=== PATIENT | male | born 1980 | race Caucasian/White ===

== ENCOUNTER 2018-07-19 12:35 | Emergency (ER) | payer SELFPAY ==
--- NOTE | 2018-07-19 13:33 | EDPHYS ---
Physician Documentation [facility] Name: Wilner Gregg Age: 38 yrs Sex: Male : 1980 Arrival Date: 07/19/2018 Time: 12:40 Bed 13 Private MD: ED Physician Myke Capellan HPI: 07/19 14:00 This 38 yrs old Male presents to ER via Ambulatory with complaints of Facial pm1 Swelling. 14:00 The patient presents with pain. The problem is located in the lower left second molar. pm1 Onset: The symptoms/episode began/occurred yesterday. Duration: The symptoms are continuous, but are steadily getting better. Modifying factors: The symptoms are alleviated by nothing, the symptoms are aggravated by nothing. Associated signs and symptoms: Pertinent negatives: dysphagia, fever, inability to eat, nausea, vomiting. The patient has not experienced similar symptoms in the past. The patient has not recently seen a physician. 14:00 Dental pain to left lower jaw onset yesterday with swelling to left side of face. pm1 Swelling has improved since yesterday. Historical: - Allergies: 13:06 No Known Allergies; hb - Immunization history:: Adult Immunizations up to date. - Social history:: Smoking status: Patient uses tobacco products, smokes one-half pack cigarettes per day. - Ebola Screening: : No symptoms or risks identified at this time. ROS: 14:00 Constitutional: Negative for fever, chills, and weight loss, Eyes: Negative for injury, pm1 pain, redness, and discharge. 14:00 Neck: Negative for injury, pain, and swelling, Cardiovascular: Negative for chest pain, palpitations, and edema, Respiratory: Negative for shortness of breath, cough, wheezing, and pleuritic chest pain, Abdomen/GI: Negative for abdominal pain, nausea, vomiting, diarrhea, and constipation, Back: Negative for injury and pain, : Negative for injury, bleeding, discharge, and swelling, MS/Extremity: Negative for injury and deformity, Skin: Negative for injury, rash, and discoloration, Neuro: Negative for headache, weakness, numbness, tingling, and seizure. 14:00 ENT: Positive for dental pain, Negative for drainage from ear(s), ear pain, sore throat, difficulty swallowing, difficulty handling secretions, hoarseness. Exam: 14:00 Constitutional: This is a well developed, well nourished patient who is awake, alert, pm1 and in no acute distress. Head/Face: Normocephalic, atraumatic. Eyes: Pupils equal round and reactive to light, extra-ocular motions intact. Lids and lashes normal. Conjunctiva and sclera are non-icteric and not injected. Cornea within normal limits. Periorbital areas with no swelling, redness, or edema. 14:00 Neck: Trachea midline, no thyromegaly or masses palpated, and no cervical lymphadenopathy. Supple, full range of motion without nuchal rigidity, or vertebral point tenderness. No Meningismus. Chest/axilla: Normal chest wall appearance and motion. Nontender with no deformity. No lesions are appreciated. Cardiovascular: Regular rate and rhythm with a normal S1 and S2. No gallops, murmurs, or rubs. Normal PMI, no JVD. No pulse deficits. Respiratory: Lungs have equal breath sounds bilaterally, clear to auscultation and percussion. No rales, rhonchi or wheezes noted. No increased work of breathing, no retractions or nasal flaring. Abdomen/GI: Soft, non-tender, with normal bowel sounds. No distension or tympany. No guarding or rebound. No evidence of tenderness throughout. Back: No spinal tenderness. No costovertebral tenderness. Full range of motion. Skin: Warm, dry with normal turgor. Normal color with no rashes, no lesions, and no evidence of cellulitis. MS/ Extremity: Pulses equal, no cyanosis. Neurovascular intact. Full, normal range of motion. 14:00 ENT: External ear(s): are unremarkable, Ear canal(s): are normal, TM's: are normal, Nose: is normal, no drainage, no edema, Mouth: is normal, no abscess, no drooling, no injury, (-) tongue elevation (-) trismus Posterior pharynx: is normal, airway is patent, no erythema, no exudate, no peritonsilar mass, no pooling of secretions, no swelling, Dental exam: dental caries, that is moderate, diffusely. 14:00 Neuro: Orientation: is normal, Motor: is normal, moves all fours. Vital Signs: 13:06 BP 152 / 96; Pulse 104; Resp 16; Temp 99; Pulse Ox 100% on R/A; Pain 9/10; hb 14:18 BP 108 / 90; Pulse 93; Resp 17; Pulse Ox 100% on R/A; mh5 MDM: 13:13 Patient medically screened. pm1 13:32 Data reviewed: vital signs. Data interpreted: Pulse oximetry: on room air is 100 %. pm1 Interpretation: normal. Counseling: I had a detailed discussion with the patient and/or guardian regarding: the historical points, exam findings, and any diagnostic results supporting the discharge/admit diagnosis, the need for outpatient follow up, for definitive care, a dentist, to return to the emergency department if symptoms worsen or persist or if there are any questions or concerns that arise at home. Administered Medications: 13:45 Drug: Clindamycin 600 mg Route: IM; Site: right gluteus; bp 14:27 Follow up: Response: No adverse reaction bp 13:45 Drug: [place] 10 mg-325 mg 1 tabs Route: PO; bp 14:27 Follow up: Response: Pain is decreased bp Disposition: 07/19/18 13:33 Discharged to Home. Impression: Periapical abscess without sinus. - Condition is Stable. - Discharge Instructions: Dental Abscess, Dental Pain. - Prescriptions for Clindamycin HCl 300 mg Oral Capsule - take 1 capsule by ORAL route every 6 hours for 10 days; 40 capsule. Tylenol- Codeine #3 300-30 mg Oral Tablet - take 2 tablets by ORAL route every 6 hours As needed; 20 tablet. - Medication Reconciliation Form, Thank You Letter, Antibiotic Education, Prescription Opioid Use form. - Follow up: Emergency Department; When: As needed; Reason: Worsening of condition. Follow up: Private Physician; When: 2 - 3 days; Reason: Recheck today's complaints, Continuance of care, Re-evaluation by your physician. - Problem is new. - Symptoms have improved. Addendum: 07/31/2018 15:10 Co-signature as Attending Physician, Myke Capellan MD Available for consultation at p s1 all times. . Signatures: Geraldo Gilliam, WASH OIL PUMP OPERATOR WASH OIL PUMP OPERATOR pm1 Ashley Velasco, RN RN hb Adarsh Pinzon RN RN Myke Loredo MD MD ps1 Corrections: (The following items were deleted from the chart) 07/19 14:27 13:33 07/19/2018 13:33 Discharged to Home. Impression: Periapical abscess without bp sinus. Condition is Stable. Forms are Medication Reconciliation Form, Thank You Letter, Antibiotic Education, Prescription Opioid Use. Follow up: Emergency Department; When: As needed; Reason: Worsening of condition. Follow up: Private Physician; When: 2 - 3 days; Reason: Recheck today's complaints, Continuance of care, Re-evaluation by your physician. Problem is new. Symptoms have improved. pm1
--- NOTE | 2018-07-19 13:33 | ER ---
Nurse's Notes [facility] Name: Wilner Gregg Age: 38 yrs Sex: Male : 1980 Arrival Date: 07/19/2018 Time: 12:40 Bed 13 Private MD: Diagnosis: Periapical abscess without sinus Presentation: 07/19 13:05 Presenting complaint: Left sided facial swelling x 2 days. Transition of care: patient hb was not received from another setting of care. Onset of symptoms was July 18, 2018. Risk Assessment: Do you want to hurt yourself or someone else? Patient reports no desire to harm self or others. Care prior to arrival: None. 13:05 Method Of Arrival: Ambulatory hb 13:05 Acuity: MITA 3 hb 14:26 Initial Sepsis Screen: Does the patient meet any 2 criteria? No. Patient's initial bp sepsis screen is negative. Does the patient have a suspected source of infection? No. Patient's initial sepsis screen is negative. Triage Assessment: 13:16 General: Appears in no apparent distress. uncomfortable, Behavior is calm, cooperative, bp appropriate for age. Pain: Complains of pain in LEFT FACE. Historical: - Allergies: 13:06 No Known Allergies; hb - Immunization history:: Adult Immunizations up to date. - Social history:: Smoking status: Patient uses tobacco products, smokes one-half pack cigarettes per day. - Ebola Screening: : No symptoms or risks identified at this time. Screenin:19 Abuse screen: Denies threats or abuse. Denies injuries from another. Nutritional bp screening: No deficits noted. Tuberculosis screening: No symptoms or risk factors identified. Fall Risk None identified. Assessment: 13:17 General: Appears in no apparent distress. uncomfortable, Behavior is calm, cooperative, bp appropriate for age. Pain: Complains of pain in LEFT FACE. Neuro: Level of Consciousness is awake, alert, obeys commands, Oriented to person, place, time, situation, Appropriate for age. Cardiovascular: No deficits noted. Respiratory: Airway is patent Respiratory effort is even, unlabored, Respiratory pattern is regular, symmetrical. GI: No signs and/or symptoms were reported involving the gastrointestinal system. : No signs and/or symptoms were reported regarding the genitourinary system. EENT: LEFT FACE SWELLING. Derm: No deficits noted. Musculoskeletal: Circulation, motion, and sensation intact. Range of motion: intact in all extremities. 14:25 Reassessment: PT D/C HOME AMBULATORY WITH FAMILY, DX WITH DENTAL ABSCESS. bp Vital Signs: 13:06 BP 152 / 96; Pulse 104; Resp 16; Temp 99; Pulse Ox 100% on R/A; Pain 9/10; hb 14:18 BP 108 / 90; Pulse 93; Resp 17; Pulse Ox 100% on R/A; mh5 ED Course: 12:40 Patient arrived in ED. rg4 13:06 Triage completed. hb 13:06 Arm band placed on. hb 13:11 Geraldo Gilliam NP is PHCP. pm1 13:11 Myke Capellan MD is Attending Physician. pm1 13:16 Adarsh Pinzon, RN is Primary Nurse. bp 13:19 Patient has correct armband on for positive identification. Bed in low position. Call bp light in reach. Side rails up X2. Adult w/ patient. 14:25 No provider procedures requiring assistance completed. Patient did not have IV access bp during this emergency room visit. Administered Medications: 13:45 Drug: Clindamycin 600 mg Route: IM; Site: right gluteus; bp 14:27 Follow up: Response: No adverse reaction bp 13:45 Drug: [place] 10 mg-325 mg 1 tabs Route: PO; bp 14:27 Follow up: Response: Pain is decreased bp Outcome: 13:33 Discharge ordered by MD. pm1 14:26 Discharged to home ambulatory, with family. bp 14:26 Condition: stable 14:26 Discharge instructions given to patient, Instructed on discharge instructions, follow up and referral plans. medication usage, Demonstrated understanding of instructions, follow-up care, medications, Prescriptions given X 2. 14:27 Patient left the ED. bp Signatures: Geraldo Gilliam NP HANDLE MAKER pm1 Ashley Velasco, СЕРГЕЙ RN Cammy Carroll [facility] Adarsh Pinzon, СЕРГЕЙ RN bp
[2018-07-19] MEDS ORDERED: HYDROCODONE/APAP 10/325 TAB ONE (14:02)
[2018-07-19] MEDS ORDERED: CLINDAMYCIN 900MG/D5W 900 MG/50 ML IVPB IV ONE (14:02)
[2018-07-19] MEDS ORDERED: CLINDAMYCIN IV 150 MG/ML (4 mL) VIAL ONE (14:05)
== END 2018-07-19 14:27 | disposition home or self-care (01) ==
LOC: ER 12:35
DX: K04.7 Periapical abscess without sinus (principal); F17.210 Nicotine dependence, cigarettes, uncomplicated
CPT/HCPCS: 96372; 99283; S0077

== ENCOUNTER → 2023-10-17 | Emergency (ER) | payer OTHER ==
[~2023-10-17] MED LIST: CYCLOBENZAPRINE 10 MG TAB ONE; DIAZEPAM 5 MG TABLET ONE; THIAMINE HCL 100 MG TABLET ONE
--- OUTSIDE RECORDS SUMMARY | 2023-10-17 19:38 | XMS REPORT | Continuity of Care Document ---
Author Name Unknown Address [address] [facility] [place] [address] [facility] Address [address] [facility] [place] [address] Care Team Providers Care Motor Grader Rough Grade Name Role Phone Pcp, Patient Does Not Have A Primary Care Physic parris DANIELLE MORSE Attending Clinician Unavailable Garry Riggs MD Attending Clinician [phone] Danielle Morse MD Attending Clinician [phone] LYNNETTE AVILA Attending Clinician Unavailable LYNNETTE AVILA Attending Clinician Unavailable Celestino Horn MD Attending Clinician [phone] Lynnette Avila DO Attending Clinician [phone] CHANDLER GOINS Attending Clinician Unavailable Chandler Goins MD Attending Clinician [phone] Rm, Vls Procedure Attending Clinician Unavailabl e Nurse, Vls Plastic Surg Attending Clinician Unav ailable Therapy-Florence HaganNrb-Zv-Ivybw Attending Clinician Unavailable Adarsh Shafer MD Attending Clinician [phone] Doctor Unassigned, [place] Attending Clinician U Myke Drew DO Attending Clinician [phone] Lab, Adc Fam Pob I Attending Clinician Unavailab Arleen Garza Attending Clinician [phone] ARLEEN MITCHELL Attending Clinician Unavailable CELESTINO HORN Admitting Clinician Unavailable Chandler Goins MD Admitting Clinician [phone] Payers Payer Name Policy Type Policy Number Effective Date Expirati on Date Source [facility] [id number] 2023 00:00:00 Problems Condition Name Condition Details Condition Category Status Onset Date Resolution Date Last Treatment Date Treating Clinician Comments Source Finger pain, right Finger pain, right Disease Active - 00:00: 00 [facility] Finger stiffness, right Finger stiffness, right Disease Active 03-14 00:00: 00 [facility] Effusion of finger joint Effusion of finger joint Disease Active 03-14 00:00: 00 [facility] Allergies, Adverse Reactions, Alerts Allergy Name Allergy Type Status Severity Reaction(s) Onset Date Inactive Date Treating Clinician Comments Source NO KNOWN ALLERGIE S Drug Class Active [facility] Social History Social Habit Start Date Stop Date Quantity Comments Source History of tobacco use Occasional tobacco smoker [facility] Gender identity [facility] Exposure to SARS-CoV-2 (event) Not sure [facility] History of Social function 2021-06-28 00:00:00 2021-06-28 00:00:00 [facility] Tobacco use and exposure 2021-05-29 00:00:00 2021-05-29 00:00:00 Smokeless tobacco non-user [facility] Sex Assigned At 1980 00:00:00 1980 00:00:00 [facility] Smoking Status Start Date Stop Date Source Occasional tobacco smoker 2021-05-29 00:00:00 [facility] Medications Ordered Medication Name Filled Medication Name Start Date Stop Date Current Medication? Ordering Clinician Indication Dosage Frequency Signature (SIG) Comments Components Source NaCl 0.9% (NS) bolus infusion 1,000 mL 10-14 04:15: 00 10-14 04:45 :00 No 1000mL at 999 mL/hr, 1,000 mL, IV Infusion, ONCE, 1 dose, On Sat10/14/23 at 2315, DIANA [facility] bacitracin 500 unit/gram ointment - 00:00: 00 Yes [id number] Apply to area(s) 4 (four) times daily. [facility] bacitracin 500 unit/gram ointment 0 8-06 00:00: 00 Yes [id number] Apply to area(s) 4 (four) times daily. [facility] bacitracin 500 unit/gram ointment 0 8-06 00:00: 00 Yes [id number] Apply to area(s) 4 (four) times daily. [facility]gram oint[facility] 0 8-06 00:00: 00 Yes [id number] Apply to area(s) 4 (four) times daily. [facility] Vital Signs Vital Name Observation Time Observation Value Comments S ource Systolic blood pressure 2023-10-15 03:29:00 142 mm[Hg] [facility] Diastolic blood pressure 2023-10-15 03:29:00 108 mm[Hg] [facility] Heart rate 2023-10-15 03:29:00 83 /min [facility] Body temperature 2023-10-15 03:29:00 36.67 Sonali [facility] Respiratory rate 2023-10-15 03:29:00 17 /min [facility] Body height 2023-10-15 03:29:00 170.2 cm [facility] Body weight 2023-10-15 03:29:00 70.308 kg [facility] BMI 2023-10-15 03:29:00 24.28 kg/m2 [facility] Oxygen saturation in Arterial blood by Pulse oximetry 2023-10-15 03:29:00 96 /min [facility] Systolic blood pressure 2023-03-29 11:55:00 118 mm[Hg] [facility] Diastolic blood pressure 2023-03-29 11:55:00 94 mm[Hg] [facility] Heart rate 2023-03-29 11:55:00 68 /min [facility] Respiratory rate 2023-03-29 11:55:00 20 /min [facility] Oxygen saturation in Arterial blood by Pulse oximetry 2023-03-29 11:55:00 96 /min [facility] Body temperature 2023-03-29 10:25:00 36.72 Sonali [facility] Body height 2023-03-29 10:25:00 170.2 cm [facility] Body weight 2023-03-29 10:25:00 68.221 kg [facility] BMI 2023-03-29 10:25:00 23.56 kg/m2 [facility] Systolic blood pressure 2021-07-12 17:04:00 121 mm[Hg] [facility] Diastolic blood pressure 2021-07-12 17:04:00 81 mm[Hg] [facility] Heart rate 2021-07-12 17:04:00 74 /min [facility] Body temperature 2021-07-12 17:04:00 36.28 Sonali [facility] Respiratory rate 2021-07-12 17:04:00 18 /min [facility] Body height 2021-07-12 17:04:00 170.2 cm [facility] Body weight 2021-07-12 17:04:00 72.53 kg [facility] BMI 2021-07-12 17:04:00 25.04 kg/m2 [facility] Oxygen saturation in Arterial blood by Pulse oximetry 2021-07-12 17:04:00 99 /min [facility] Systolic blood pressure 2021-06-28 17:15:00 128 mm[Hg] [facility] Diastolic blood pressure 2021-06-28 17:15:00 82 mm[Hg] [facility] Heart rate 2021-06-28 17:15:00 85 /min [facility] Body temperature 2021-06-28 17:15:00 36.83 Sonali [facility] Body height 2021-06-28 17:15:00 170.2 cm [facility] Body weight 2021-06-28 17:15:00 73.074 kg [facility] BMI 2021-06-28 17:15:00 25.23 kg/m2 [facility] Oxygen saturation in Arterial blood by Pulse oximetry 2021-06-28 17:15:00 99 /min [facility] Procedures Procedure Date / Time Performed Performing Clinicia n Source COMP. METABOLIC PANEL (52711) 2023-10-15 03:45:00 Garry Riggs [facility] ETHANOL 2023-10-15 03:45:00 Danielle Morse [facility] CBC WITH DIFF 2023-10-15 03:45:00 Garry Riggs [facility] TROPONIN I 2023-03-29 10:58:00 Celestino Horn [facility] COMP. METABOLIC PANEL (50627) 2023-03-29 10:58:00 Celestino Horn [facility] CBC WITH DIFF 2023-03-29 10:58:00 Celestino Horn [facility] NOTICE OF PRIVACY PRACTICES 2023-03-29 10:14:51 Doctor Unassigned, [place] [facility] CONSENT/REFUSAL FOR DIAGNOSIS AND TREATMENT 2023-03-29 10:14:23 Doctor Unassigned, [place] [facility] Encounters Start Date/Time End Date/Time Encounter Type Admission Type Attending Clinicians Care Facility Care Department Encounter ID Source 2021-05-29 13:43:11 Emergency X [facility] SPL [id number] [facility] 2021-05-29 13:41:28 Emergency [facility] [id number] [facility] 2023-10-14 22:24:00 2023-10-15 00:02:00 Emergency X DANIELLE MORSE [facility] ERT [id number] [facility] 2023-10-14 22:24:00 2023-10-15 00:02:00 Emergency Garry Riggs Donnell [facility] 1.2.840.114 350.1.13.10 4.2.7.2.686 [id number] [facility] 2023-03-29 05:26:00 2023-03-29 07:25:00 Emergency X LYNNETTE AVILA HEE-ROSA [facility] ERT [id number] [facility] 2023-03-29 05:26:00 2023-03-29 07:25:00 Emergency Celestino Horn Lynnette [facility] 1..840.114 350.1.13.10 4.2.7.2.686 [id number] [facility] 2021-07-12 11:00:00 2021-07-12 12:10:04 Outpatient R CHANDLER GOINS [facility] [id number] [facility] 2021-07-12 11:00:00 2021-07-12 12:10:04 Nurse Visit Chandler Goins [facility] .840.114 350.1.13.10 4.2.7.2.686 [id number] [facility] 2021-07-12 11:00:00 2021-07-12 11:00:00 Outpatient R [facility] [id number] [facility] 2021-06-28 11:09:33 2021-06-28 11:53:24 Office Visit Chandler Goins Vls Procedure [facility] [place] [facility] ..840.114 350.1.13.10 4.2.7.2.686 [id number] 201 [id number] [facility] 2021-06-28 11:00:00 2021-06-28 11:53:24 Outpatient R CHANDLER GOINS [facility] [id number] [facility] 2021-06-15 15:30:30 2021-06-15 16:01:48 Nurse Visit Nurse, Vls Plastic Surg Chandler Goins [facility] [place] [facility] ..840.114 350.1.13.10 4.2.7.2.686 [id number] [facility] 2021-06-15 15:30:00 2021-06-15 16:01:48 Outpatient CHANDLER GAONA [facility] [id number] [facility] 2021-06-15 15:30:00 2021-06-15 15:30:00 Outpatient CHANDLER GAONA [facility] [id number] [facility] 2021-06-15 00:00:00 2021-06-15 00:00:00 Telephone Chandler Goins [facility] 1.2.840.114 350.1.13.10 4.2.7.2.686 [id number] [facility] 2021-06-12 00:00:00 2021-06-12 00:00:00 [facility]phone [facility] [place] [facility] 1.2.840.114 350.1.13.10 4.2.7.2.686 [id number] 201 [id number] [facility] 2021-05-29 14:14:11 2021-05-29 23:59:00 Hospital Encounter Chandler Goins [facility] [place] [facility] 1.2.840.114 350.1.13.10 4.2.7.2.686 [id number] [facility] 2021-05-29 14:40:06 2021-05-29 15:36:21 Office Visit Chandler Goins [facility] [place] [facility] 1.2.840.114 350.1.13.10 4.2.7.2.686 [id number] [facility] 2021-05-29 14:00:00 2021-05-29 15:36:21 Outpatient CHANDLER GAONA [facility] [id number] [facility] 2021-05-29 14:00:00 2021-05-29 15:36:21 Outpatient CHANDLER GAONA [facility] [id number] [facility] 2021-05-28 00:00:00 2021-05-28 00:00:00 Abstract Chandler Goins [facility] 1.84.114 350.1.13.10 4.2.7.2.686 [id number] [facility] 2021-05-26 06:51:00 2021-05-26 07:36:00 Emergency X SOPIHA DANIELLE [facility] ERT [id number] [facility] 2021-05-26 06:51:00 2021-05-26 07:36:00 Emergency Danielle Morse [facility] 1.84.114 350.1.13.10 4.2.7.2.686 [id number] [facility] 2021-05-26 06:51:00 2021-05-26 07:36:00 Emergency X SOPHIA DANIELLE [facility] ERT [id number] [facility] 2021-05-26 00:00:00 2021-05-26 00:00:00 [facility] 1.84.114 350.1.13.10 4.2.7.2.686 [id number] [facility] 2021-03-27 14:00:00 2021-03-27 14:00:00 Outpatient R CHANDLER GOINS [facility] [id number] [facility] 2021-03-13 14:45:55 2021-03-13 15:28:49 Ancillary Visit Therapy-Kelly Ortiz Brian A [facility] ([facility]) 1..114 350.1.13.10 4.2.7.2.686 [id number] [facility] 2021-03-13 13:32:57 2021-03-13 14:22:04 Office Visit Chandler Goins [facility] 1.84.114 350.1.13.10 4.2.7.2.686 [id number] [facility] 2021-03-13 13:30:00 2021-03-13 14:22:04 Outpatient CHANDLER GAONA [facility] [id number] [facility] 2021-03-13 13:45:00 2021-03-13 13:45:00 Outpatient R [facility] [id number] [facility] 2021-03-13 13:30:00 2021-03-13 13:30:00 Outpatient CHANDLER GAONA [facility] [id number] [facility] 2021-03-13 00:00:00 2021-03-13 00:00:00 Orders Only Doctor Unassigned, [place] [facility] 1.2.840.114 350.1.13.10 4.2.7.2.686 [id number] [facility] 2021-03-03 15:39:00 2021-03-03 19:58:00 Emergency Chandler Goins [facility] 1.2.840.114 350.1.13.10 4.2.7.2.686 [id number] [facility] 2021-03-03 13:04:00 2021-03-03 14:25:00 Emergency Myke Capellan [facility] 1.2.840.114 350.1.13.10 4.2.7.2.686 [id number] [facility] 2021-03-03 00:00:00 2021-03-03 00:00:00 Orders Only Doctor Unassigned, [place] [facility] 1.2.840.114 350.1.13.10 4.2.7.2.686 [id number] [facility] 2020-03-08 08:32:57 2020-03-08 08:52:57 Laboratory Only Lab, Adc Fam Bonib Arleen Oseguera [facility] 1.840.114 350.1.13.10 4.2.7.2.686 [id number] [facility] 2020-03-08 08:40:00 2020-03-08 08:40:00 Outpatient R ARLEEN MITCHELL [facility] [id number] [facility] 2020-03-08 00:00:00 2020-03-08 00:00:00 Letter (Out) Doctor Unassigned, [place] [facility] 1.840.114 350.1.13.10 4.2.7.2.686 [id number] [facility] Results Test Description Test Time Test Comments Results Resul t Comments Source Ethanol 2023-10-15 04:20:21 ALCOHOL>300mg/dL 10/14/2023 11:20 [facility] Psnzdzmc92-018 Toxic>[address] TECHNOLOGIST>400 [facility] 04:04:14* Test Item Value Reference Range Interpretation Comme nts WBC (test code = 6690-2) 6.05 4.20-10.70 RBC (test code = 789-8) 4.88 4.26-5.52 HGB (test code = 718-7) 15.8 g/dL 12.2-16.4 HCT (test code = 4544-3) 44.9 % 38.4-49.3 MCV (test code = 787-2) 92.0 fL 81.7-95.6 MCH (test code = 785-6) 32.4 pg 26.1-32.7 MCHC (test code = 786-4) 35.2 g/dL 31.2-35.0 H RDW-SD (test code = 72049-6) 48.3 fL 38.5-51.6 RDW-CV (test code = 788-0) 14.3 % 12.1-15.4 PLT (test code = 777-3) 197 150-328 MPV (test code = 94546-7) 10.0 fL 9.8-13.0 NRBC/100 WBC (test code = 2537496602) 0.0 0.0-10.0 NRBC x10^3 (test code = 8932667024) See_Comment [Automated messa ge] The system which generated this result transmitted reference range: 10*3/?L. The reference range was not used to interpret this result as normal/abnormal. GRAN MAT (NEUT) % (test code = 770-8) 34.1 % IMM GRAN % (test code = 0325065194) 0.20 % LYMPH % (test code = 736-9) 53.6 % MONO % (test code = 5905-5) 6.1 % EOS % (test code = 713-8) 4.8 % BASO % (test code = 706-2) 1.2 % GRAN MAT x10^3(ANC) (test code = 3186973059) 2.07 10*3/uL 1.99-6.95 IMM GRAN x10^3 (test code = 1513820506) 0.00-0.06 LYMPH x10^3 (test code = 731-0) 3.24 10*3/uL 1.09-3.23 H MONO x10^3 (test code = 742-7) 0.37 10*3/uL 0.36-1.02 EOS x10^3 (test code = 711-2) 0.29 10*3/uL 0.06-0.53 BASO x10^3 (test code = 704-7) 0.07 10*3/uL 0.01-0.09 Lab Interpretation (test code = 12206-2) Abnormal [facility] WITH [id number] 11:51:35* Test Item Value Reference Range Interpretation Comme nts WBC (test code = 6690-2) 5.28 See_Comment [Automated messa ge] The system which generated this result transmitted reference range: 4.20 - 10.70 10*3/?L. The reference range was not used to interpret this result as normal/abnormal. RBC (test code = 789-8) 5.07 See_Comment [Automated messa ge] The system which generated this result transmitted reference range: 4.26 - 5.52 10*6/?L. The reference range was not used to interpret this result as normal/abnormal. HGB (test code = 718-7) 16.7 g/dL 12.2-16.4 H HCT (test code = 4544-3) 45.9 % 38.4-49.3 MCV (test code = 787-2) 90.5 fL 81.7-95.6 MCH (test code = 785-6) 32.9 pg 26.1-32.7 H MCHC (test code = 786-4) 36.4 g/dL 31.2-35.0 H RDW-SD (test code = 02336-5) 43.8 fL 38.5-51.6 RDW-CV (test code = 788-0) 13.2 % 12.1-15.4 PLT (test code = 777-3) 176 See_Comment [Automated messa ge] The system which generated this result transmitted reference range: 150 - 328 10*3/?L. The reference range was not used to interpret this result as normal/abnormal. MPV (test code = 02395-2) 10.1 fL 9.8-13.0 NRBC/100 WBC (test code = 3467246162) 0.0 See_Comment [Automated me ssage] The system which generated this result transmitted reference range: 0.0 - 10.0 /100 WBCs. The reference range was not used to interpret this result as normal/abnormal. NRBC x10^3 (test code = 0927723202) See_Comment [Automated messa ge] The system which generated this result transmitted reference range: 10*3/?L. The reference range was not used to interpret this result as normal/abnormal. SEG % (test code = 14213-9) 12 % 33-76 L LYMPH % (test code = 35005-6) 68 % 14-54 H MONO % (test code = 40412-9) 4 % 0-4 EOS % (test code = 60573-3) 16 % 0-3 H ANC (test code = 753-4) 0.63 10*3/uL 1.99-6.95 L Lab Interpretation (test code = 81478-5) Abnormal [facility] [id number] 11:46:26* Test Item Value Reference Range Interpretation Comme nts TROPONIN I (test code = 2995968640) 0.004 ng/mL <=0.034 HILARIA (test code = HILARIA) Reference (Normal) Range (defined by the 99th percentile reference limit): <= 0.034 ng/mL Note: Cardiac troponin begins to rise 3-4 hours after the onset of ischemia. Repeat in 4-6 hours if the sample was drawn within 3-4 hours of the onset of the symptom and found normal. Diagnosis of myocardial injury is made with acute changes in cTn concentrations with at least one serial sample above the 99th percentile upper reference limit (URL), taken together with the patient's clinical presentation. Biotin has been reported to cause a negative bias, interpret results relative to patient's use of biotin. Lab Interpretation (test code = 10867-6) Normal [facility]. METABOLIC PANEL (45737)2023-03-29 11:35:02* Test Item Value Reference Range Interpretation Comme nts NA (test code = 6961597000) 141 mmol/L 135-145 K (test code = 4198221837) 3.3 mmol/L 3.5-5.0 L CL (test code = 6736679435) 106 mmol/L 98-108 CO2 TOTAL (test code = 7820902497) 25 mmol/L 23-31 AGAP (test code = 0788465257) 10 2-16 BUN (test code = 0889590240) 4 mg/dL 7-23 L GLUCOSE (test code = 5846325115) 91 mg/dL 70-110 CREATININE (test code = 8607695360) 0.78 mg/dL 0.60-1.25 TOTAL BILI (test code = 8087960269) 0.4 mg/dL 0.1-1.1 CALCIUM (test code = 2593508296) 8.9 mg/dL 8.6-10.6 T PROTEIN (test code = 1121521552) 8.3 g/dL 6.3-8.2 H ALBUMIN (test code = 1707796312) 4.6 g/dL 3.5-5.0 ALK PHOS (test code = 2234350586) 75 U/L 34-122 ALTv (test code = 1742-6) 47 U/L 5-50 AST(SGOT) (test code = 9369513026) 45 U/L 13-40 H eGFR (test code = 5225836592) 108.6 mL/min/1.73m2 HILARIA (test code = HILARIA) Association of Glomerular Filtration Rate (GFR) and Staging of Kidney Disease* + --+ --+ ------+| GFR (mL/min/1.73 m2) ?| With Kidney Damage ?| ?Without Kidney Damage+ --------+ --------+ +| ?>90 ?| ?Stage one ?| ? Normal ?+ ---+ ---+ -------+| ?60-89 ?| ?Stage two ?| ? Decreased GFR ? + --+ --+ ------+| ?30-59 ?| ?Stage three ?| ? Stage three ? + --+ --+ ------+| ?15-29 ?| ?Stage four ? | ? Stage four ?+ ---+ ---+ -------+| ?<15 (or dialysis) ? ?| ?Stage five ? | ? Stage five ?+ ---+ ---+ -------+ *Each stage assumes the associated GFR level has been in effect for at least three months. ?Stages 1 to 5, with or without kidney disease, indicate chronic kidney disease. Notes: Determination of stages one and two (with eGFR >59mL/min/1.73 m2) requires estimation of kidney damage for at least three months as defined by structural or functional abnormalities of the kidney, manifested by either:Pathological abnormalities or Markers of kidney damage (including abnormalities in the composition of the blood or urine or abnormalities in imaging tests). Lab Interpretation (test code = 67204-4) Abnormal [facility] Notes Date/Time Note Provider Source 2023-10-15 00:01:59 HWYdbRlHdV+VscRQKJHk vHapoEnfQ6PjWI qMP4UmdKsJOqgrO405gmoobV6WWZYt7238 -03-19T00:01:59 Pt given printed and verbal discharge instructions regarding paresthesia, alcoholic intoxication without complication, encouraged hydration,Pt verbalized understanding of instructions, pt awake alert oriented, resp reg unlabored, skin w/d, color appropriate for race, moves all ext well,pt encouraged to follow up with pcp and or OrthoAdvised to seek medical attention for new/prolonged/worsening of symptomsNo adverse reaction to meds given in ER noted upon dischargePIV d'cd, dressing to site, catheter in tact.Awake, alert oriented, resp reg unlabored, skin w/d, pt leaving amb with steady gait, in no apparent distress, [address]-2T[address] PmtiTE1505-46-42U72:02:39[facility] NoteTXT1.2.840.422190.1.13.104.2.7 .2.305963|[id number] for patient rrek82218-2OdvgXPSBIVIGRYXZhkhfkaa d C-CDA narrative textUT25 Butler StreetVawaQdyyceibvSqvfsbemyOGGF04761530 43XLCOODHFAIIEUTCZSQDREB1061-33-74 T00:02:391.2.840.598123.1.72.3.15| 1.2.840.289667.1.13.104.2.7.2.7278 [id number] [facility] 2023-10-14 22:30:00 wHYjpSNf7k0pAXVdgwhj Et/F8wb7OHaheo MUAHFUR5yCjPuiLcCW7Zoen6g5lSoQ8037 -03-18T22:30:00 When MD left room patient using obscene hand gestures and statements like, "bitch" "fucking asshole" and "fermín." Patient able to make fist with right hand with middle finger elevated. 95918-3Zhuxidjeb department AwfyCM9999-63-70X59:36:09[facility] NoteTXT1.2.840.337074.1.13.104.2.7 .2.563856|[id number] for patient nwnk05835-9NjiyEPRJDYZECMUYgqkxwlz d C-CDA narrative textUT69 Johnson StreetTXTX77555775 86CMYSBAYFJAZDXLVLHMGWAJ2918-17-40 T22:36:091.2.840.184246.1.72.3.15| 1.2.840.675002.1.13.104.2.7.2.7278 [id number] [facility] 2023-10-14 22:28:31 1ubdITK30qXqbqngc3R2 AmOmeMNiCckWUd 4MsOQ9ohLPZpZc8ZylMbvkHhzd4OkO1792 -03-18T22:28:31 Patient arrived to ED via [facility] c/o right hand being "numb and tingles" x9 weeks. Patient states his right hand and arm tingle when he sleeps with his hand behind his head. EMS states ETOH on board patient states drinking malt liquor tonight. When asked how much patient states "how ever much the fuck I want." Patient Aox4. 30350-5Xwcvmgukl department Triage wrihBL4169-97-07I48:33:01[facility] department Triage noteTXT1.2.840.099898.1.13.104.2.7 .2.174183|[id number] for patient lesc13145-8Hlbewwppe department NoteLNNARRATIVEFormatted C-CDA narrative [id number]-Jdzoe McInnis RNUT[address] Johnson [id number] 92ACUHFCIOWHPZVBAIFWAOCG6762-73-94 T22:33:011.2.840.214479.1.72.3.15| 1.2.840.508990.1.13.104.2.7.2.7278 [id number] Redd Luque СЕРГЕЙ [facility] 2023-10-14 22:23:00 5Db79RySmGKZ7TrakRKe CPf0iXhTeJSYT0 9PbbBPico/ThSHEedeaHuBFmoK8ksu8587 -03-18T22:23:00 The patient was endorsed to me by Dr. Riggs. The patient states that he has had arm pain for the past nine weeks and believes that he has difficulty moving his arm. However, he has been very vulgar demonstrative with his hands since he has been here in the ED. He has alcohol level greater than 300. Hematological chemistry studies within acceptable limits. He does not have an acute ischemic event at this time. The patient will be discharged to follow-up with Ortho. He can return for any questions or concerns.Danielle Morse MD10/14/23 2355 70071-4Jaxgaihyo Emergency department UhkyBG8698-28-43M11:55:20Physician Emergency department NoteTXT1.2.840.748948.1.13.104.2.7 .2.185126|[id number] for patient ouil30100-6Egihlyacw department NoteLNNARRATIVEFormatted C-CDA narrative text[address] Qx[id number] 25YGOKGKZQHQZOYCQJMGFNFL7112-60-68 T23:55:201.2.840.971744.1.72.3.15| 1.2.840.827252.1.13.104.2.7.2.7278 [id number] [facility] 2023-03-29 07:18:55 GAtGiVnDMXFfPhaW6j2i PhQjwbD4acx2nf 8T/YNq3ZpsssD1vsxyr12pDb5OqGAz7988 -09-01T07:18:55 Pt given printed and verbal discharge instructions regarding Chest pain,Getting support for quitting smoking, health effects of smoking, encouraged hydration,NO Prescriptions providedDiscussed ibuprofen and to take with food to avoid GI distress.Pt verbalized understanding of instructions, pt awake alert oriented, resp reg unlabored, skin w/d, color appropriate for race, moves all ext well,pt encouraged to follow up with pcp Advised to seek medical attention for new/prolonged/worsening of symptoms,No adverse reaction to meds given in ER noted upon dischargePIV d'cd, dressing to site, catheter in tact.Awake, alert oriented, resp reg unlabored, skin w/d, pt leaving amb with steady gait, in no apparent distress, 43434-5Qwvzgyaat department JwiaVZ1281-68-09A81:20:31[facility] NoteTXT1.2.840.737381.1.13.104.2.7 .2.811251|[id number] for patient [id number] M Hayes RNUT[address] StreetBg[id number] 52MRQFEEZNOGZZHYTUNIQSZC1742-94-60 T07:20:311.2.840.717348.1.72.3.15| 1.2.840.826450.1.13.104.2.7.2.7278 [id number] Rita Mcneil RN [facility] 2023-03-29 05:19:56 +y241wHbaNYgDDvDDn5J y+L3S2YaEOgre1 gUSqyBKE00D76FfRwibxKG4306xbrP3408 -09-01T05:19:56 Pt arrived with c/o of chest pain, pain on L side, and between shoulder blades. Pain began 3 weeks ago, and felt worst today. Pt reports smoking a pack a day. Pt states he believe it may be lung cancer. Pt reports drinking over a pint of alcohol. Pt states the the pain does not subside with the alcohol. 22531-5Edytokqbr department Triage lylwLL1694-33-89J27:23:59[facility] department Triage noteTXT1.2.840.667284.1.13.104.2.7 .2.657224|[id number] for patient kizy40937-3Jykvzunef department [id number] A Diaz [facility]NM[facility] [address] Hg[id number] 17PTCBQZMXQOJIADLFPYOKYH3126-09-39 T05:23:591.2.840.983555.1.72.3.15| 1.2.840.303995.1.13.104.2.7.2.7278 [id number] Yulissa Steel RN [facility] 2023-03-29 05:14:00 KyQ+W7cWKvI75yBnYXdD Ixwf/n6q80iJkt fQXx5tOKM5neO2tkjXARx/vQUfpyDq7974 -09-01T05:14:00 Patient feeling better. Repeat BP 118/94.CP is reproducible. Recent Results (from the past 24 hour(s)) CBC WITH DIFF Collection Time: 03/29/23 5:58 AM Result Value Ref Range WBC 5.28 4.20 - 10.70 10*3/?L RBC 5.07 4.26 - 5.52 10*6/?L HGB 16.7 (H) 12.2 - 16.4 g/dL HCT 45.9 38.4 - 49.3 % MCV 90.5 81.7 - 95.6 fL MCH 32.9 (H) 26.1 - 32.7 pg MCHC 36.4 (H) 31.2 - 35.0 g/dL RDW-SD 43.8 38.5 - 51.6 fL RDW-CV 13.2 12.1 - 15.4 % PLT 176 150 - 328 10*3/?L MPV 10.1 9.8 - 13.0 fL NRBC/100 WBC 0.0 0.0 - 10.0 /100 WBCs NRBC x10^3 <0.01 10*3/?L SEG % 12 (L) 33 - 76 % LYMPH % 68 (H) 14 - 54 % MONO % 4 0 - 4 % EOS % 16 (H) 0 - 3 % ANC 0.63 (L) 1.99 - 6.95 10*3/uL COMP. METABOLIC PANEL ([id number]) Collection Time: 03/29/23 5:58 AM Result Value Ref Range NA 141 135 - 145 mmol/L K 3.3 (L) 3.5 - 5.0 mmol/L CL 106 98 - 108 mmol/L CO2 TOTAL 25 23 - 31 mmol/L AGAP 10 2 - 16 BUN 4 (L) 7 - 23 mg/dL GLUCOSE 91 70 - 110 mg/dL CREATININE 0.78 0.60 - 1.25 mg/dL TOTAL BILI 0.4 0.1 - 1.1 mg/dL CALCIUM 8.9 8.6 - 10.6 mg/dL T PROTEIN 8.3 (H) 6.3 - 8.2 g/dL ALBUMIN 4.6 3.5 - 5.0 g/dL ALK PHOS 75 34 - 122 U/L ALTv 47 5 - 50 U/L AST(SGOT) 45 (H) 13 - 40 U/L eGFR 108.6 mL/min/1.73m2 TROPONIN I Collection Time: 03/29/23 5:58 AM Result Value Ref Range TROPONIN I 0.004 <=0.034 ng/mL Hospital Encounter on 03/29/23 XR CHEST 1 VW Narrative EXAM: XR CHEST 1 VWHISTORY: 43 years-old Male; Provided indication: Chest Pain . Historyobtained from EPIC: "chest pain, pain on L side, and between shoulderblades. Pain began 3 weeks ago, and felt worst today"TECHNIQUE: Single frontal view of the chest.COMPARISON: NoneFINDINGS:The lungs are overinflated and diaphragms are flattened. No focalconsolidation or pleural abnormality is seen.The cardiomediastinal silhouette is normal in size accounting fortechnique.No acute osseous abnormality is detected. Impression Emphysematous changes without radiographic evidence of acutecardiopulmonary abnormality.Preliminary Report Dictated by Resident: Federico Chaparro EKG NSR 68 bpm, no acute ST-T wave changes.Dx: Chest pain, noncardiac. Lynnette Avila D.O.EM PhysicianRTI Billing ID #[id number] Lynnette Avila, 03/29/23 0657 41628-8Utsxazriy Emergency department CtocBO4031-77-97J34:57:56Physician Emergency department NoteTXT1.2.840.256908.1.13.104.2.7 .2.743412|[id number] for patient xfrq70443-9Bfhzbaybq department NoteLNEMCARE EMERGENCY PHYSICIAN STAFFEMCARE EMERGENCY PHYSICIAN STAFF[address][id number] 86CYVFMOPMSCJSAKNZFZQASM2986-66-72 T06:57:561.2.840.870150.1.72.3.15| 1.2.840.052078.1.13.104.2.7.2.7278 [id number] [facility]
[2023-10-17 21:06] LABS: Absolute Eosinophils 0.1 K/uL (0-0.5); Absolute Lymphocytes (CBC) 1.9 K/uL (0.7-4.9); Absolute Monocytes 0.5 K/uL (0.1-1.3); Basophils % 0.6 % (0-1.3); Eosinophils % 2.3 % (0-4.4); Hemoglobin 15.5 g/dL (13.6-17.9); Lymphocytes % 34.2 % (15.3-44.8); MCH 32.5 pg (27.0-35.0); MCHC 34.5 g/dL (32.0-36.0); MCV 94.2 fL (80-100); MPV 8.6 fL (7.6-11.3); Monocytes % 8.6 % (3.3-12.3); Neutrophils % 54.3 % (41.7-73.7); Nucleated Red Blood Cells % 0.1 % (0-0); Platelets 185 thou/uL (152-406); RBC Red Blood Cell Count 4.78 M/uL (4.33-5.43); Red Cell Distribution Width 14.1 % (12.1-15.2)
[2023-10-17 21:18] LABS: Albumin 3.5 g/dL (3.4-5.0); Albumin/Globulin Ratio 0.7 (1.1-1.8); Anion Gap 11.5 mEq/L (5.0-15.0); Bilirubin Total 0.8 mg/dL (0.2-1.0); Globulin 4.7 g/dL (2.3-3.5); Protein, Total 8.2 g/dL (6.4-8.2)
[2023-10-17 21:19] LABS: Potassium 4.5 mEq/L (3.5-5.1)
--- NOTE | 2023-10-17 21:21 | RAD REPORT ---
EXAM DESCRIPTION: CT - Head C Spine Mpr Wo Con - 10/17/2023 8:55 pm CLINICAL HISTORY: Right arm numbness and weakness COMPARISON: None. TECHNIQUE: Computed axial tomography of the head and cervical spine was obtained. Sagittal and coronal reconstruction was performed. All CT scans are performed using dose optimization technique as appropriate and may include automated exposure control or mA/KV adjustment according to patient size. FINDINGS: An intracranial bleed is not seen. The ventricles are normal in caliber. No significant hypodensity within the brain. An extra-axial fluid collection is not noted. Fluid within the visualized sinuses and mastoids is not seen A cervical fracture is not visualized. No dislocation is noted. Spondylosis C4-5 results in mild narrowing neural foramina Spondylosis C5-6 results in mild narrowing the right neural foramina Spondylosis C6-7 appears result in mild to moderate narrowing of thecal sac and mild to moderate narr owing of the neural foramina IMPRESSION: No acute intracranial abnormality is seen. A cervical fracture is not visualized. Spondylosis C6-7 appears to result in mild to moderate central spinal stenosis Nonemergent MRI recommended for further evaluation
--- NOTE | 2023-10-17 21:34 | ER ---
Nurse's Notes [facility] Name: Wilner Gregg Age: 43 yrs Sex: Male : 1980 Arrival Date: 10/17/2023 Time: 19:35 Bed DX4 Private MD: Diagnosis: Right radial nerve palsy, acute right wrist drop, bilateral alcoholic neuropathy;Alcohol abuse with unspecified alcohol-induced disorder;Alcoholic polyneuropathy Presentation: 10/16 20:05 Chief complaint: Patient states: 2-3 months numbness/weakness in right arm/hand; pt km8 reports unable to extend wrist since 10/12/23. Coronavirus screen: Client denies travel out of the [place] in the last 14 days. Ebola Screen: No symptoms or risks identified at this time. Onset of symptoms was October 12, 2023. 20:05 Method Of Arrival: Ambulatory km8 20:05 Acuity: MITA 3 km8 20:07 Initial Sepsis Screen: Does the patient meet any 2 criteria? No. Patient's initial km8 sepsis screen is negative. Does the patient have a suspected source of infection? No. Patient's initial sepsis screen is negative. Risk Assessment: Do you want to hurt yourself or someone else? Patient reports no desire to harm self or others. Triage Assessment: 20:05 General: Appears in no apparent distress. Behavior is calm, cooperative, appropriate km8 for age. Pain: Denies pain. EENT: No signs and/or symptoms were reported regarding the EENT system. Neuro: Level of Consciousness is awake, alert, obeys commands, Oriented to person, place, time, situation, Reports numbness in right arm since 2-3 months. Cardiovascular: Denies chest pain, shortness of breath, Patient's skin is warm and dry. Respiratory: Airway is patent Respiratory effort is even, unlabored, Respiratory pattern is regular, symmetrical. GI: No signs and/or symptoms were reported involving the gastrointestinal system. : No signs and/or symptoms were reported regarding the genitourinary system. Derm: No signs and/or symptoms reported regarding the dermatologic system. Skin is intact, is healthy with good turgor, Skin is dry, Skin is pink, warm \T\ dry. normal, Skin temperature is warm. Musculoskeletal: Range of motion: limited in right wrist. 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 Flu vaccine is not up to date. - Social history:: Smoking status: Patient reports the use of cigarette tobacco products, smokes one pack cigarettes per day. Patient uses alcohol, on a daily basis. Patient/guardian denies using street drugs. - Family history:: not pertinent. Screenin:27 [facility] ED Fall Risk Assessment (Adult) History of falling in the last 3 months, mb9 including since admission No falls in past 3 months (0 pts) Confusion or Disorientation No (0 pts) Intoxicated or Sedated No (0 pts) Impaired Gait No (0 pts) Mobility Assist Device Used No (0 pt) Altered Elimination No (0 pt) Score/Fall Risk Level 0 - 2 = Low Risk Oriented to surroundings, Maintained a safe environment, Educated pt \T\ family on fall prevention, incl call for assistance when getting out of bed. Abuse screen: Denies threats or abuse. Nutritional screening: No deficits noted. Tuberculosis screening: No symptoms or risk factors identified. Assessment: 21:30 Reassessment: No changes from previously documented assessment. Patient and/or family mb9 updated on plan of care and expected duration. Pain level reassessed. Patient is alert, oriented x 3, equal unlabored respirations, skin warm/dry/pink. Vital Signs: 20:07 BP 132 / 98; Pulse 71; Resp 18; Temp 99.1(O); Pulse Ox 100% on R/A; Weight 70.31 kg [facility] (R); Height 5 ft. 7 in. (R); Pain 0/10; 21:31 BP 129 / 89; Pulse 70; Resp 18; Pulse Ox 100% on R/A; mb9 20:07 Body Mass Index 24.28 (70.31 kg, 170.18 cm) [facility] 20:07 Pain Scale: Adult [facility] Mega Coma Score: 20:15 Eye Response: spontaneous(4). Motor Response: obeys commands(6). Verbal Response: sp4 oriented(5). Total: 15. NIH Stroke Scale Scores: 20:15 NIHSS Score: 0 sp4 ED Course: 19:38 Patient arrived in ED. mr 19:58 Vladimir Daniel MD is Attending Physician. sp4 20:05 Arm band placed on left wrist. km8 20:06 Triage completed. km8 20:[address] via wheelchair. mb9 20:50 CBC with Diff Sent. vc1 20:50 CMP Sent. vc1 20:53 Missed attempt(s): 20 gauge in left antecubital area. Bleeding controlled, band aid mb9 applied, catheter tip intact. 20:57 CT Head C Spine In Process Unspecified. EDMS 21:04 Initial lab(s) drawn, by me, sent to lab. mb9 21:27 Patient has correct armband on for positive identification. Client placed on continuous mb9 cardiac and pulse oximetry monitoring. NIBP monitoring applied. 21:27 No provider procedures requiring assistance completed. Patient did not have IV access mb9 during this emergency room visit. 21:28 Provided Education on: PO medication given. mb9 21:30 Coco Delgadillo RN is Primary Nurse. mb9 21:33 Chadd Harvey MD is Referral Physician. sp4 Administered Medications: 20:53 Drug: Cyclobenzaprine PO 10 mg PO once Route: PO; mb9 21:18 Follow up: Response: No adverse reaction mb9 20:53 Drug: Diazepam PO 5 mg PO once Route: PO; mb9 21:18 Follow up: Response: No adverse reaction mb9 21:27 Drug: Thiamine PO 200 mg PO once Route: PO; mb9 21:30 Follow up: Response: No adverse reaction mb9 Medication: 21:28 VIS not applicable for this client. mb9 Outcome: 21:34 Discharge ordered by . sp4 21:40 Discharged to home ambulatory, mb9 21:40 Condition: stable 21:40 Discharge instructions given to patient, Instructed on discharge instructions, follow up and referral plans. Demonstrated understanding of instructions, follow-up care, medications, Prescriptions given X 2, 21:40 Patient left the ED. mb9 NIH Stroke Scale - NIH Stroke Score Date: 10/17/2023 Time: 20:15 Total Score = 0 10. Dysarthria (speech clarity - read or repeat words) - 0(Normal) 11. Extinction and Inattention (visual/tactile/auditory/spatial/personal) - 0(No abnormality) 1a. Level of Consciousness (LOC) - 0(Alert) 1b. Level of Consciousness (LOC) (Month \T\ Age) - 0(Both) 1c. LOC Commands (Open \T\ Closes Eyes/Early Childhood Associate) - 0(Both) 2. Best Gaze (Lateral Gaze Paresis) - 0(Normal) 3. Visual Field Loss - 0(No visual loss) 4. Facial Palsy - 0(Normal) 5a. Left Arm: Motor (10-second hold) - 0(No drift) 5b. Right Arm: Motor (10-second hold) - 0(No drift) 6a. Left Leg: Motor (5-second hold - always test supine) - 0(No drift) 6b. Right Leg: Motor (5-second hold - always test supine) - 0(No drift) 7. Limb Ataxia (finger/nose \T\ heel/parrish - test with eyes open) - 0(Absent) 8. Sensory Loss (pinprick arms/legs/face) - 0(Normal) 9. Best Language: Aphasia (description/naming/reading) - 0(No aphasia) Initials: sp4 Signatures: Dispatcher [employer] EDMI Coco Mcdermott, Reg Reg mr Charly Jada, RN RN vc1 Coco Delgadillo, RN RN mb9 Vladimir Daniel MD MD sp4 Dixie Aguillon, СЕРГЕЙ RN km8 Corrections: (The following items were deleted from the chart) 20:11 20:07 Pulse 71bpm; Resp 18bpm; Pulse Ox 100% RA; Temp 99.1F Oral; 70.31 kg km8 Reported; Height 5 ft. 7 in. Reported; BMI: 24.2; Pain 0/10, Adult; km8
--- NOTE | 2023-10-17 21:34 | EDPHYS ---
Physician Documentation [facility] Name: Wilner Gregg Age: 43 yrs Sex: Male : 1980 Arrival Date: 10/17/2023 Time: 19:35 Bed DX4 Private MD: ED Physician Vladimir Daniel HPI: 10/16 19:58 This 43 yrs old Other Male presents to ER via Unassigned with complaints of hand sp4 problem. 20:11 Patient is 43-year-old male with no significant past medical history as reported sp4 presents with several months estimated 2 to 3 months shoulder numbness to bilateral hands, also 3 days ago developing extensor musculature weakness of the right wrist and hand. No similar prior episodes in the past. . 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 Flu vaccine is not up to date. - Social history:: Smoking status: Patient reports the use of cigarette tobacco products, smokes one pack cigarettes per day. Patient uses alcohol, on a daily basis. Patient/guardian denies using street drugs. - Family history:: not pertinent. ROS: 20:13 Constitutional: Negative for fever, chills, and weight loss, positive right hand right sp4 forearm right wrist extensor musculature weakness, positive numbness and tingling bilateral hands 20:13 All other systems are negative, Exam: 20:13 Constitutional: This is a well developed, well nourished patient who is awake, alert, sp4 and in no acute distress. Head/Face: Normocephalic, atraumatic. Eyes: Pupils equal round and reactive to light, extra-ocular motions intact. Lids and lashes normal. Conjunctiva and sclera are not injected. Cornea within normal limits. Periorbital areas with no swelling, redness, or edema. ENT: Nares patent. No nasal discharge, no septal abnormalities noted. Tympanic membranes are normal and external auditory canals are clear. Oropharynx with no redness, swelling, or masses, exudates, or evidence of obstruction, uvula midline. Mucous membranes moist. Neck: Trachea midline, no thyromegaly or masses palpated, and no cervical lymphadenopathy. Supple, full range of motion without nuchal rigidity, or vertebral point tenderness. Chest/axilla: Normal chest wall appearance and motion. Nontender with no deformity. No lesions are appreciated. Cardiovascular: Regular rate and rhythm with a normal S1 and S2. No gallops, murmurs, or rubs. Normal PMI, no JVD. No pulse deficits. Respiratory: Lungs have equal breath sounds bilaterally, clear to auscultation and percussion. No rales, rhonchi or wheezes noted. No increased work of breathing, no retractions or nasal flaring. Abdomen/GI: Soft, with normal bowel sounds. No distension or tympany. No guarding or rebound. No evidence of tenderness throughout. Back: No spinal tenderness. No costovertebral tenderness. Skin: Warm, dry with normal turgor. Normal color with no rashes, no lesions, and no evidence of cellulitis. MS/ Extremity: Pulses equal, no cyanosis. Neurovascular intact. Full, normal range of motion. Neuro: Awake and alert, GCS 15, oriented to person, place, time, and situation. Cranial nerves II-XII grossly intact. There is apparent failure ureter to extend right wrist in the right hand, Right wrist and hand extensor musculature weakness. No sings of CVA. Signs of isolated extensor weakness to the right wrist / hand Psych: Awake, alert, with orientation to person, place and time. Behavior, mood, and affect are within normal limits Vital Signs: 20:07 BP 132 / 98; Pulse 71; Resp 18; Temp 99.1(O); Pulse Ox 100% on R/A; Weight 70.31 kg 8 (R); Height 5 ft. 7 in. (R); Pain 0/10; 21:31 BP 129 / 89; Pulse 70; Resp 18; Pulse Ox 100% on R/A; mb9 20:07 Body Mass Index 24.28 (70.31 kg, 170.18 cm) [facility] 20:07 Pain Scale: Adult [facility] NIH Stroke Scale Scores: 20:15 NIHSS Score: 0 sp4 Mega Coma Score: 20:15 Eye Response: spontaneous(4). Motor Response: obeys commands(6). Verbal Response: sp4 oriented(5). Total: 15. MDM: 20:00 Patient medically screened. sp4 20:16 Differential Diagnosis altered mental status, TIA, CVA . Data reviewed: vital signs, sp4 nurses notes. ED course: Patient and has no signs of CVA, there is isolated extensor weakness to the right wrist and hand, not consistent with CVA. Symptoms starting 3 days ago. . 21:32 ED course: EXAM DESCRIPTION: CT - Head C Spine Mpr Wo Con - 10/17/2023 8:55 pm CLINICAL sp4 HISTORY: Right arm numbness and weakness COMPARISON: None. TECHNIQUE: Computed axial tomography of the head and cervical spine was obtained. Sagittal and coronal reconstruction was performed. All CT scans are performed using dose optimization technique as appropriate and may include automated exposure control or mA/KV adjustment according to patient size. FINDINGS: An intracranial bleed is not seen. The ventricles are normal in caliber. No significant hypodensity within the brain. An extra-axial fluid collection is not noted. Fluid within the visualized sinuses and mastoids is not seen A cervical fracture is not visualized. No dislocation is noted. Spondylosis C4-5 results in mild narrowing neural foramina Spondylosis C5-6 results in mild narrowing the right neural foramina Spondylosis C6-7 appears result in mild to moderate narrowing of thecal sac and mild to moderate narrowing of the neural foramina IMPRESSION: No acute intracranial abnormality is seen. A cervical fracture is not visualized. Spondylosis C6-7 appears to result in mild to moderate central spinal stenosis Nonemergent MRI recommended for further evaluation. 21:41 ED course: Collateral history patient states he drinks high volumes of alcohol, up to a sp4 large bottle of vodka per day. Patient states he may have passed out 3 days ago causing compression to his right arm. Patient was strongly advised to discontinue heavy use of alcohol. Advised patient to join all alcoholic Anonymous. Patient was referred to Dr. Harvey with neurology for repeat examination. Right arm splint was applied for comfort to prevent the wrist contractures. Will prescribe thiamine 200 mg daily for 30 days. Will prescribe Robaxin twice a day as needed for muscle soreness associated with wrist drop. 10/16 20:09 Order name: CBC with Diff; Complete Time: 21:12 sp4 10/16 20:09 Order name: CMP; Complete Time: 21:25 sp4 10/16 20:10 Order name: CT Head C Spine; Complete Time: 21:25 sp4 10/16 20:10 Order name: Saline Lock; Complete Time: 20:53 sp4 Administered Medications: 20:53 Drug: Cyclobenzaprine PO 10 mg PO once Route: PO; mb9 21:18 Follow up: Response: No adverse reaction mb9 20:53 Drug: Diazepam PO 5 mg PO once Route: PO; mb9 21:18 Follow up: Response: No adverse reaction mb9 21:27 Drug: Thiamine PO 200 mg PO once Route: PO; mb9 21:30 Follow up: Response: No adverse reaction mb9 Disposition Summary: 10/17/23 21:34 Discharge Ordered Notes: Location: Home sp4 Problem: new sp4 Symptoms: have improved sp4 Condition: Stable sp4 Diagnosis - Right radial nerve palsy, acute right wrist drop, bilateral alcoholic neuropathy sp4 - Alcohol abuse with unspecified alcohol-induced disorder sp4 - Alcoholic polyneuropathy sp4 Followup: sp4 - With: Chadd Harvey MD - When: 7 - 10 days - Reason: Recheck today's complaints Discharge Instructions: - Discharge Summary Sheet sp4 - Radial Nerve Palsy sp4 Forms: - Patient Portal Instructions sp4 Prescriptions: - methocarbamol 750 mg Oral tablet - take 2 tablet ORAL route every 12 hours PRN muscle sorness; 60 tablet; Refills: sp4 0, Product Selection Permitted - thiamine HCl (vitamin B1) 100 mg Oral tablet - take 2 tablet ORAL route daily for 30 days; 60 tablet; Refills: 0, Product sp4 Selection Permitted NIH Stroke Scale - NIH Stroke Score Date: 10/17/2023 Time: 20:15 Total Score = 0 10. Dysarthria (speech clarity - read or repeat words) - 0(Normal) 11. Extinction and Inattention (visual/tactile/auditory/spatial/personal) - 0(No abnormality) 1a. Level of Consciousness (LOC) - 0(Alert) 1b. Level of Consciousness (LOC) (Month \T\ Age) - 0(Both) 1c. LOC Commands (Open \T\ Closes Eyes/Cemetery Keeper) - 0(Both) 2. Best Gaze (Lateral Gaze Paresis) - 0(Normal) 3. Visual Field Loss - 0(No visual loss) 4. Facial Palsy - 0(Normal) 5a. Left Arm: Motor (10-second hold) - 0(No drift) 5b. Right Arm: Motor (10-second hold) - 0(No drift) 6a. Left Leg: Motor (5-second hold - always test supine) - 0(No drift) 6b. Right Leg: Motor (5-second hold - always test supine) - 0(No drift) 7. Limb Ataxia (finger/nose \T\ heel/parrish - test with eyes open) - 0(Absent) 8. Sensory Loss (pinprick arms/legs/face) - 0(Normal) 9. Best Language: Aphasia (description/naming/reading) - 0(No aphasia) Initials: sp4 Signatures: Dispatcher [employer] EDMS Coco Delgadillo RN RN mb9 Vladimir Daniel MD MD sp4 Dixie Aguillon RN RN km8 Corrections: (The following items were deleted from the chart) 20:16 20:13 Constitutional: This is a well developed, well nourished patient who is sp4 awake, alert, and in no acute distress. Head/Face: Normocephalic, atraumatic. Eyes: Pupils equal round and reactive to light, extra-ocular motions intact. Lids and lashes normal. Conjunctiva and sclera are not injected. Cornea within normal limits. Periorbital areas with no swelling, redness, or edema. ENT: Nares patent. No nasal discharge, no septal abnormalities noted. Tympanic membranes are normal and external auditory canals are clear. Oropharynx with no redness, swelling, or masses, exudates, or evidence of obstruction, uvula midline. Mucous membranes moist. Neck: Trachea midline, no thyromegaly or masses palpated, and no cervical lymphadenopathy. Supple, full range of motion without nuchal rigidity, or vertebral point tenderness. Chest/axilla: Normal chest wall appearance and motion. Nontender with no deformity. No lesions are appreciated. Cardiovascular: Regular rate and rhythm with a normal S1 and S2. No gallops, murmurs, or rubs. Normal PMI, no JVD. No pulse deficits. Respiratory: Lungs have equal breath sounds bilaterally, clear to auscultation and percussion. No rales, rhonchi or wheezes noted. No increased work of breathing, no retractions or nasal flaring. Abdomen/GI: Soft, with normal bowel sounds. No distension or tympany. No guarding or rebound. No evidence of tenderness throughout. Back: No spinal tenderness. No costovertebral tenderness. Skin: Warm, dry with normal turgor. Normal color with no rashes, no lesions, and no evidence of cellulitis. MS/ Extremity: Pulses equal, no cyanosis. Neurovascular intact. Full, normal range of motion. Neuro: Awake and alert, GCS 15, oriented to person, place, time, and situation. Cranial nerves II-XII grossly intact. There is apparent failure ureter to extend right wrist in the right hand, Right wrist and hand extensor musculature weakness. Psych: Awake, alert, with orientation to person, place and time. Behavior, mood, and affect are within normal limits sp4
[2023-10-17 22:01] VITALS: BP 129/89; TEMP 99.1; O2SAT 100
== END ==
LOC: ER 19:35
DX: G56.31 Lesion of radial nerve, right upper limb (principal); F10.188 Alcohol abuse with other alcohol-induced disorder; G62.1 Alcoholic polyneuropathy; M21.331 Wrist drop, right wrist; F17.210 Nicotine dependence, cigarettes, uncomplicated
CPT/HCPCS: 36415; 70450; 72125; 80053; 85025; 99284

== ENCOUNTER 2024-07-27 12:41 | Emergency (ER) | payer OTHER ==
--- OUTSIDE RECORDS SUMMARY | 2024-07-27 12:46 | XMS REPORT | Continuity of Care Document ---
Author Name Unknown Address [address] [facility] [place] [address] [facility] thconnect Address [address] 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 Phone Pcp, Patient Does Not Have A Primary Care Physic parris JARETH DOWNING Attending Clinician Unavailable SARAH XIE Attending Clinician Unavailable LAB90 Attending Clinician Unavailable ARLEEN MARAVILLA Attending Clinician Unavailab MARC Everett Attending Clinician Unava ilkary Campaigns, Generic Provider Attending Clinician Unavailable DANIELLE MORSE Attending Clinician Unavailable Garry Riggs MD Attending Clinician [phone] Danielle Morse MD Attending Clinician [phone] LYNNETTE AVILA Attending Clinician Unavailable LYNNETTE AVILA Attending Clinician Unavailable Celestino Horn MD Attending Clinician [phone] Lynnette Avila DO Attending Clinician [phone] CHANDLER GOINS Attending Clinician Unavailable Chandler Goins MD Attending Clinician [phone] Rm, Vls Procedure Attending Clinician Unavailladonna moreno Nurse, Vls Plastic Surg Attending Clinician Unav ailable Therapy-Bentley, Gdv-Vz-Rexip Attending Clinician Unavailable Adarsh Shafer MD Attending Clinician [phone] Doctor Unassigned, Wendell Attending Clinician U Myke Drew DO Attending Clinician Lab, Adc Fam Pob I Attending Clinician UnavailArleen Blake Attending Clinician ARLEEN SORTO Attending Clinician Unavailable CELESTINO HORN Admitting Clinician Unavailable Chandler Goins MD Admitting Clinician [phone] Payers Payer Name Policy Type Policy Number Effective Date Expirati on Date Source [facility]OR[facility] COPAY FOCUS 9 [id number] 2023 00:00:00 Problems Condition Name Condition Details Condition Category Status Onset Date Resolution Date Last Treatment Date Treating Clinician Comments Source Well adult exam Well adult exam Disease Active 2023-07 00:00: 00 Lauren Seybold - Externa l Pulmonary emphysema (multi HCC) Pulmonary emphysema (multi HCC) Disease Active 2023-07 00:00: 00 Lauren Seybold - Externa l Overweight (BMI 25.0-29.9) Overweight (BMI 25.0-29.9) Disease Active 2023-07 00:00: 00 Lauren Seybold - Externa l Decreased platelet count Decreased platelet count Disease Active 2023-07 1-19 00:00: 00 Lauren Seybold - Externa l Alcohol dependence in remission (multi HCC) Alcohol dependence in remission (multi HCC) Disease Active 2023-07 0-22 00:00: 00 Lauren Seybold - Externa l Finger pain, right Finger pain, right Disease Active 8-17 00:00: 00 [facility] Finger stiffness, right Finger stiffness, right Disease Active 8-17 00:00: 00 [facility] Effusion of finger joint Effusion of finger joint Disease Active 817 00:00: 00 [facility] History of alcohol abuse History of alcohol abuse Disease Active Lauren Seybold - Externa l Bipolar disorder (multi HCC) Bipolar disorder (multi HCC) Disease Active Lauren Seybold - Externa l Family history of colon cancer Family history of colon cancer Disease Active Lauren Seybold - Externa l Tobacco use Tobacco use Disease Active Lauren Seybold - Externa l Allergies, Adverse Reactions, Alerts Allergy Name Allergy Type Status Severity Reaction(s) Onset Date Inactive Date Treating Clinician Comments Source NO KNOWN ALLERGIE S Drug Class Active [facility] Social History Social Habit Start Date Stop Date Quantity Comments Source History of tobacco use 1997-11-14 00:00:00 Cigarette Smoker Lauren Lowe - External Gender identity [facility] Exposure to SARS-CoV-2 (event) Not sure [facility] Sexual orientation Verenice collins Mynor - External Cigarettes smoked current (pack per day) - Reported 2024-07-09 00:00:00 2024-07-09 00:00:00 Lauren Lowe - External Cigarette pack-years 2024-07-09 00:00:00 2024-07-09 00:00:00 Lauren Lowe - External Alcoholic beverage intake 2024-07-09 00:00:00 2024-07-09 00:00:00 Ex-drinker (finding) Lauren Lowe - External Education 2024-05-19 00:00:00 2024-05-19 00:00:00 13 Lauren Pagan External History of Social function 2024-05-19 00:00:00 2024-05-19 00:00:00 Lauren Pagan External Alcohol Comment 2024-05-19 00:00:00 2024-05-19 00:00:00 Sober for 6 months Lauren Lowe - External Sex 2023-06-18 18:39:24 2023-06-18 18:39:24 Male (finding) Lauren Lowe - External Tobacco use and exposure 2021-05-29 00:00:00 2021-05-29 00:00:00 Smokeless tobacco non-user [facility] Sex assigned at 1980 00:00:00 1980 00:00:00 Lauren Pagan External Smoking Status Start Date Stop Date Source Smokes tobacco daily 2024-07-09 00:00:00 Lauren Lowe - External Ex-smoker 2024-05-19 00:00:00 2024-05-19 00:00:00 Lauren Lowe - External Occasional tobacco smoker 2021-05-29 00:00:00 [facility] Medications Ordered Medication Name Filled Medication Name Start Date Stop Date Current Medication? Ordering Clinician Indication Dosage Frequency Signature (SIG) Comments Components Source Albuterol HFA 108 (90 Base) MCG/ACT IN AERS 2023-07 00:00: 00 Yes [id number] 2{puff} Q.25D Inhale 2 puffs into the lungs every 6 hours as needed for wheezing or shortness of breath. Lauren card [place]-3 Fatty Acids (Fish Oil) 1000 MG oral Capsule 2023-07 00:00: 00 Yes [id number] 1000mg QD Take 1 capsule (1,000 mg total) by mouth daily. Lauren card Mupirocin (BACTROBAN) 2 % apply externally Ointment 2023-07 00:00: 00 Yes [id number] 1{appli cation} Q.5D Apply 1 Applicatio n topically 2 times daily. Lauren card Divalproex Sodium ER (Depakote ER) 500 MG oral 2023-07 00:00: 00 Yes [id number] 500mg Q.5D Take 500 mg by mouth 2 times daily. Lauren card Fluoxetine HCl 20 MG oral Capsule 2023-07 00:00: 00 Yes [id number] 20mg QD Take 1 capsule (20 mg total) by mouth daily. Lauren card Gabapentin 300 MG oral Capsule 2023-07 00:00: 00 Yes [id number] 300mg QD Take 1 capsule (300 mg total) by mouth daily. Lauren card Thiamine HCl 100 MG oral Tablet 2023-07 00:00: 00 Yes 100mg QD Take 1 tablet (100 mg total) by mouth daily. Lauren card Thiamine Mononitrate 100 MG oral Tablet 2023-07 00:00: 00 07-09 00:00 :00 No [id number] 1{tbl} QD Take 1 tablet by mouth daily. Lauren card Divalproex Sodium ER (Depakote ER) 500 MG oral 2024-0 6-14 16:19: 35 01-09 00:00 :00 No 500mg Take 500 mg by mouth 2 times daily. Lauren card Gabapentin 300 MG oral Capsule 01-09 16:19: 35 01-09 00:00 :00 No 300mg Take 1 capsule (300 mg total) by mouth 3 times daily. Lauren card Fluoxetine HCl 20 MG oral Capsule 01-09 16:19: 01-09 00:00 :00 No 20mg Take 1 capsule (20 mg total) by mouth daily. Lauren card Gabapentin 300 MG oral Capsule 01-09 00:00: 00 05-19 00:00 :00 No [id number] 300mg Q.86504206 [id number] 3D Take 1 capsule (300 mg total) by mouth 3 times daily. Lauren card Fluoxetine HCl 20 MG oral Capsule 01-09 00:00: 00 05-19 00:00 :00 No [id number] 20mg QD Take 1 capsule (20 mg total) by mouth daily. Lauren card Divalproex Sodium ER (Depakote ER) 500 MG oral 01-09 00:00: 00 05-19 00:00 :00 No [id number] 500mg Q.5D Take 500 mg by mouth 2 times daily. Lauren card Thiamine Mononitrate 100 MG oral Tablet 10-17 00:00: 00 05-19 00:00 :00 No TAKE 2 TABLET BY MOUTH DAILY FOR 30 DAYS Lauren card NaCl 0.9% (NS) bolus infusion 1,000 mL 10-14 04:15: 00 10-14 04:45 :00 No 1000mL at 999 mL/hr, 1,000 mL, IV Infusion, ONCE, 1 dose, On Sat10/14/23 at 2315, DIANA [facility] bacitracin 500 unit/gram ointment 03-03 00:00: 00 Yes [id number] Apply to area(s) 4 (four) times daily. [facility] Vital Signs Vital Name Observation Time Observation Value Comments S ource Systolic blood pressure 2024-07-09 15:04:00 120 mm[Hg] Lauren Seybo ld - External Diastolic blood pressure 2024-07-09 15:04:00 68 mm[Hg] Lauren Seybo ld - External Heart rate 2024-07-09 15:04:00 75 /min Kelse y Seybold - External Body temperature 2024-07-09 15:04:00 37.06 Sonali Lauren Seybold - External Respiratory rate 2024-07-09 15:04:00 18 /min Lauren Seybold - External Body height 2024-07-09 15:04:00 170.2 cm Kamla ey Seybold - External Body weight 2024-07-09 15:04:00 80.91 kg Kamla ey Seybold - External BMI 2024-07-09 15:04:00 27.94 kg/m2 Kamla ey Seybold - External Oxygen saturation in Arterial blood by Pulse oximetry 2024-07-09 15:04:00 98 /min Lauren Seybo ld - External Systolic blood pressure 2024-05-19 15:42:00 129 mm[Hg] Lauren Seybo ld - External Diastolic blood pressure 2024-05-19 15:42:00 67 mm[Hg] Lauren Seybo ld - External Heart rate 2024-05-19 15:42:00 76 /min Kelse y Seybold - External Body temperature 2024-05-19 15:42:00 36.17 Sonali Lauren Seybold - External Respiratory rate 2024-05-19 15:42:00 16 /min Lauren Seybold - External Body height 2024-05-19 15:42:00 170.2 cm Kamla ey Seybold - External Body weight 2024-05-19 15:42:00 76.658 kg Kamla ey Seybold - External BMI 2024-05-19 15:42:00 26.47 kg/m2 Kamla ey Seybold - External Oxygen saturation in Arterial blood by Pulse oximetry 2024-05-19 15:42:00 97 /min Lauren Seybo ld - External Systolic blood pressure 2024-01-10 20:51:00 124 mm[Hg] Lauren Salmono ld - External Diastolic blood pressure 2024-01-10 20:51:00 82 mm[Hg] Lauren Salmono ld - External Heart rate 2024-01-10 20:51:00 72 /min Tawanda bolaños Seybold - External Body temperature 2024-01-10 20:51:00 36.44 Sonali Lauren Dialybold - External Respiratory rate 2024-01-10 20:51:00 18 /min Lauren Dialybold - External Body height 2024-01-10 20:51:00 170.2 cm Kamla ey Seybold - External Body weight 2024-01-10 20:51:00 74.56 kg Kamla ey Seybold - External BMI 2024-01-10 20:51:00 25.74 kg/m2 Kamla granado Seybold - External Oxygen saturation in Arterial blood by Pulse oximetry 2024-01-10 20:51:00 97 /min Lauren Salmono ld - External Systolic blood pressure 2023-10-15 03:29:00 142 mm[Hg] [facility] Diastolic blood pressure 2023-10-15 03:29:00 108 mm[Hg] [facility] Heart rate 2023-10-15 03:29:00 83 /min [facility] Body temperature 2023-10-15 03:29:00 36.67 Sonali [facility] Respiratory rate 2023-10-15 03:29:00 17 /min [facility] Body height 2023-10-15 03:29:00 170.2 cm [facility] Body weight 2023-10-15 03:29:00 70.308 kg [facility] BMI 2023-10-15 03:29:00 24.28 kg/m2 [facility] Oxygen saturation in Arterial blood by Pulse oximetry 2023-10-15 03:29:00 96 /min [facility] Systolic blood pressure 2023-03-29 11:55:00 118 mm[Hg] [facility] Diastolic blood pressure 2023-03-29 11:55:00 94 mm[Hg] [facility] Heart rate 2023-03-29 11:55:00 68 /min [facility] Respiratory rate 2023-03-29 11:55:00 20 /min [facility] Oxygen saturation in Arterial blood by Pulse oximetry 2023-03-29 11:55:00 96 /min [facility] Body temperature 2023-03-29 10:25:00 36.72 Sonali [facility] Body height 2023-03-29 10:25:00 170.2 cm [facility] Body weight 2023-03-29 10:25:00 68.221 kg [facility] BMI 2023-03-29 10:25:00 23.56 kg/m2 [facility] Systolic blood pressure 2021-07-12 17:04:00 121 mm[Hg] [facility] Diastolic blood pressure 2021-07-12 17:04:00 81 mm[Hg] [facility] Heart rate 2021-07-12 17:04:00 74 /min [facility] Body temperature 2021-07-12 17:04:00 36.28 Sonali [facility] Respiratory rate 2021-07-12 17:04:00 18 /min [facility] Body height 2021-07-12 17:04:00 170.2 cm [facility] Body weight 2021-07-12 17:04:00 72.53 kg [facility] BMI 2021-07-12 17:04:00 25.04 kg/m2 [facility] Oxygen saturation in Arterial blood by Pulse oximetry 2021-07-12 17:04:00 99 /min [facility] Systolic blood pressure 2021-06-28 17:15:00 128 mm[Hg] [facility] Diastolic blood pressure 2021-06-28 17:15:00 82 mm[Hg] [facility] Heart rate 2021-06-28 17:15:00 85 /min [facility] Body temperature 2021-06-28 17:15:00 36.83 Sonali [facility] Body height 2021-06-28 17:15:00 170.2 cm [facility] Body weight 2021-06-28 17:15:00 73.074 kg [facility] BMI 2021-06-28 17:15:00 25.23 kg/m2 [facility] Oxygen saturation in Arterial blood by Pulse oximetry 2021-06-28 17:15:00 99 /min [facility] Procedures Procedure Date / Time Performed Performing Clinicia n Source COMP. METABOLIC PANEL (97119) 2023-10-15 03:45:00 Garry Riggs [facility] ETHANOL 2023-10-15 03:45:00 Danielle Morse [facility] CBC WITH DIFF 2023-10-15 03:45:00 Garry Riggs [facility] TROPONIN I 2023-03-29 10:58:00 Celestino Horn [facility] COMP. METABOLIC PANEL (63002) 2023-03-29 10:58:00 Celestino Horn [facility] CBC WITH DIFF 2023-03-29 10:58:00 Celestino Horn [facility] NOTICE OF PRIVACY PRACTICES 2023-03-29 10:14:51 Doctor Unassigned, Wendell [facility] CONSENT/REFUSAL FOR DIAGNOSIS AND TREATMENT 2023-03-29 10:14:23 Doctor Unassigned, Wendell [facility] Encounters Start Date/Time End Date/Time Encounter Type Admission Type Attending Clinicians Care Facility Care Department Encounter ID Source 2021-05-29 13:43:11 Emergency X [facility] SPL [id number] [facility] 2021-05-29 13:41:28 Emergency [facility] [id number] [facility] 2024-07-27 00:00:00 2024-07-27 00:00:00 Outpatient JARETH DOWNING [id number] Lauren Lowe 2024-07-24 00:00:00 2024-07-24 00:00:00 Outpatient SARAH XIE [id number] Lauren Lowe 2024-07-09 09:15:00 2024-07-09 09:15:00 Outpatient SARAH X[facility] [id number] [facility] 2024-06-16 00:00:00 2024-06-16 00:00:00 Outpatient SARAH XIE [id number] [facility] 2024-06-12 09:25:00 2024-06-12 09:25:00 Outpatient LAB90 LAUREN YANSEY [id number] [facility] 2024-05-19 10:30:00 2024-05-19 10:30:00 Outpatient SARAH XIE [id number] [facility] 2024-02-14 10:00:00 2024-02-14 10:00:00 Outpatient TAIWO ARLEENALEXYS FERNANDEZ LAUREN [id number] Lauren [facility] 2024-01-15 00:00:00 2024-01-15 00:00:00 Outpatient ROX MARC LAUREN FERNANDEZ [id number] Lauren [facility] 2024-01-10 16:30:00 2024-01-10 16:30:00 Outpatient LAB90 [facility]ANSE[facility] [id number] [facility] 2024-01-10 15:45:00 2024-01-10 15:45:00 Outpatient HELENA GRAMAJOAN LAUREN FERNANDEZ [id number] [facility] 2023-10-23 00:00:00 2023-10-23 00:00:00 Letter (Out) Campaigns, Generic Provider [facility] 1.840.114 350.1.13.10 4.2.7.2.686 [id number] [facility] 2023-10-14 22:24:00 2023-10-15 00:02:00 Emergency X DANIELLE MORSE [facility] ERT [id number] [facility] 2023-10-14 22:24:00 2023-10-15 00:02:00 Emergency Garry Riggs Donnell [facility] 1.840.114 350.1.13.10 4.2.7.2.686 [id number] [facility] 2023-03-29 05:26:00 2023-03-29 07:25:00 Emergency LYNNETTE DOMINIQUE, LYNNETTE [facility] ERT [id number] [facility] 2023-03-29 05:26:00 2023-03-29 07:25:00 Emergency Celestino Horn Hee-Kwang [facility] 1..840.114 350.1.13.10 4.2.7.2.686 [id number] [facility] 2021-07-12 11:00:00 2021-07-12 12:10:04 Outpatient R CHANDLER GOINS [facility] [id number] [facility] 2021-07-12 11:00:00 2021-07-12 12:10:04 Nurse Visit Chandler Goins [facility] [place] [facility] 07.30.840.114 350.1.13.10 4.2.7.2.686 [id number] [facility] 2021-07-12 11:00:00 2021-07-12 11:00:00 Outpatient R [facility] [id number] [facility] 2021-06-28 11:09:33 2021-06-28 11:53:24 Office Visit Chandler Goins Vls Procedure [facility] [place] 07.30.840.114 350.1.13.10 4.2.7.2.686 [id number] [facility] 2021-06-28 11:00:00 2021-06-28 11:53:24 Outpatient R CHANDLER GOINS [facility] [id number] [facility] 2021-06-15 15:30:30 2021-06-15 16:01:48 Nurse Visit Nurse, Deedees Plastic Surg Chandler Goins [facility] [place] [facility] 07.30.840.114 350.1.13.10 4.2.7.2.686 [id number] [facility] 2021-06-15 15:30:00 2021-06-15 16:01:48 Outpatient CHANDLER GAONA [facility] [id number] [facility] 2021-06-15 15:30:00 2021-06-15 15:30:00 Outpatient CHANDLER GAONA [facility] [id number] [facility] 2021-06-15 00:00:00 2021-06-15 00:00:00 Telephone Chandler Goins [facility] 1.2.840.114 350.1.13.10 4.2.7.2.686 [id number] [facility] 2021-06-12 00:00:00 2021-06-12 00:00:00 [facility] [place] 1.2.840.114 350.1.13.10 4.2.7.2.686 [id number] [facility] 2021-05-29 14:14:11 2021-05-29 23:59:00 Hospital Encounter Chandler Goins [facility] [place] 1.2.840.114 350.1.13.10 4.2.7.2.686 [id number] [facility] 2021-05-29 14:40:06 2021-05-29 15:36:21 Office Visit Chandler Goins [facility] [place] 1.2.840.114 350.1.13.10 4.2.7.2.686 [id number] [facility] 2021-05-29 14:00:00 2021-05-29 15:36:21 Outpatient CHANDLER GAONA [facility] [id number] [facility] 2021-05-29 14:00:00 2021-05-29 15:36:21 Outpatient CHANDLER GAONA [facility] [id number] [facility] 2021-05-28 00:00:00 2021-05-28 00:00:00 Abstract Chandler Goins [facility] 1..840.114 350.1.13.10 4.2.7.2.686 [id number] [facility] 2021-05-26 06:51:00 2021-05-26 07:36:00 Emergency X DANIELLE MORSE [facility] ERT [id number] [facility] 2021-05-26 06:51:00 2021-05-26 07:36:00 Emergency Danielle Morse [facility] 1..840.114 350.1.13.10 4.2.7.2.686 [id number] [facility] 2021-05-26 06:51:00 2021-05-26 07:36:00 Emergency X DANIELLE MORSE [facility] ERT [id number] [facility] 2021-05-26 00:00:00 2021-05-26 00:00:00 Telephone Chandler Goins [facility] 1..840.114 350.1.13.10 4.2.7.2.686 [id number] [facility] 2021-03-27 14:00:00 2021-03-27 14:00:00 Outpatient R CHANDLER GOINS [facility] [id number] [facility] 2021-03-13 14:45:55 2021-03-13 15:28:49 Ancillary Visit Therapy-Kelly Ortiz [facility] ([facility]) 1.2.840.114 350.1.13.10 4.2.7.2.686 [id number] [facility] 2021-03-13 13:32:57 2021-03-13 14:22:04 Office Visit Chandler Goins [facility] 1.2.840.114 350.1.13.10 4.2.7.2.686 [id number] [facility] 2021-03-13 13:30:00 2021-03-13 14:22:04 Outpatient R CHANDLER GOINS [facility] [id number] [facility] 2021-03-13 13:45:00 2021-03-13 13:45:00 Outpatient Karolyn [facility] [id number] [facility] 2021-03-13 13:30:00 2021-03-13 13:30:00 Outpatient R CHANDLER GOINS [facility] [id number] [facility] 2021-03-13 00:00:00 2021-03-13 00:00:00 Orders Only Doctor Unassigned, Wendell [facility] 1.2840.114 350.1.13.10 4.2.7.2.686 [id number] [facility] 2021-03-03 15:39:00 2021-03-03 19:58:00 Emergency Chandler Goins [facility] 1.2.840.114 350.1.13.10 4.2.7.2.686 [id number] [facility] 2021-03-03 13:04:00 2021-03-03 14:25:00 Emergency Myke Capellan [facility] 1.2.840.114 350.1.13.10 4.2.7.2.686 [id number] [facility] 2021-03-03 00:00:00 2021-03-03 00:00:00 Orders Only Doctor Unassigned, Wendell [facility] 1.2840.114 350.1.13.10 4.2.7.2.686 [id number] [facility] 2020-03-08 08:32:57 2020-03-08 08:52:57 Laboratory Only Lab, Adc Fam Pob I Arleen Sorto [facility] Office [address] 1.840.114 350.1.13.10 4.2.7.2.686 [id number] [facility] 2020-03-08 08:40:00 2020-03-08 08:40:00 Outpatient R ARLEEN SORTO [facility] [id number] [facility] 2020-03-08 00:00:00 2020-03-08 00:00:00 Letter (Out) Doctor Unassigned, Wendell [facility] 1.840.114 350.1.13.10 4.2.7.2.686 [id number] [facility] Results Test Description Test Time Test Comments Results Resul t Comments Source Ethanol 2023-10-15 04:20:21 ALCOHOL>300mg/dL 10/14/2023 11:[facility] [id number] Toxic>100 Depression of CARTOON ARTIST>400 [facility] [id number] 04:04:14* Test Item Value Reference Range Interpretation [...] g/dL 31.2-35.0 H RDW-SD (test code = 24183-4) 48.3 fL 38.5-51.6 RDW-CV (test code = 788-0) 14.3 % 12.1-15.4 PLT (test code = 777-3) 197 150-328 MPV (test code = 34413-6) 10.0 fL 9.8-13.0 NRBC/100 WBC (test code = 7423113357) 0.0 0.0-10.0 NRBC x10^3 (test code = 5131458207) See_Comment [Automated messa ge] The system which generated this result transmitted reference range: 10*3/?L. The reference range was not used to interpret this result as normal/abnormal. GRAN MAT (NEUT) % (test code = 770-8) 34.1 % IMM GRAN % (test code = 5369387064) 0.20 % LYMPH % (test code = 736-9) 53.6 % MONO % (test code = 5905-5) 6.1 % EOS % (test code = 713-8) 4.8 % BASO % (test code = 706-2) 1.2 % GRAN MAT x10^3(ANC) (test code = 6518678469) 2.07 10*3/uL 1.99-6.95 IMM GRAN x10^3 (test code = 0859494554) 0.00-0.06 LYMPH x10^3 (test code = 731-0) 3.24 10*3/uL 1.09-3.23 H MONO x10^3 (test code = 742-7) 0.37 10*3/uL 0.36-1.02 EOS x10^3 (test code = 711-2) 0.29 10*3/uL 0.06-0.53 BASO x10^3 (test code = 704-7) 0.07 10*3/uL 0.01-0.09 Lab Interpretation (test code = 32512-2) Abnormal [facility] WITH [id number] 11:51:35* Test Item Value Reference Range Interpretation [...] g/dL 31.2-35.0 H RDW-SD (test code = 54512-5) 43.8 fL 38.5-51.6 RDW-CV (test code = 788-0) 13.2 % 12.1-15.4 PLT (test code = 777-3) 176 See_Comment [Automated [employer] ge] The system which generated this result transmitted reference range: 150 - 328 10*3/?L. The reference range was not used to interpret this result as normal/abnormal. MPV (test code = 41321-8) 10.1 fL 9.8-13.0 NRBC/100 WBC (test code = 4619666308) 0.0 See_Comment [Automated [employer] ssage] The system which generated this result transmitted reference range: 0.0 - 10.0 /100 WBCs. The reference range was not used to interpret this result as normal/abnormal. NRBC x10^3 (test code = 1759405501) See_Comment [Automated [employer] ge] The system which generated this result transmitted reference range: 10*3/?L. The reference range was not used to interpret this result as normal/abnormal. SEG % (test code = 19592-5) 12 % 33-76 L LYMPH % (test code = 59462-8) 68 % 14-54 H MONO % (test code = 39734-2) 4 % 0-4 EOS % (test code = 22841-8) 16 % 0-3 H ANC (test code = 753-4) 0.63 10*3/uL 1.99-6.95 L Lab Interpretation (test code = 13796-2) [facility]:46[facility]26* Test Item Value Reference Range Interpretation Comme nts TROPONIN I (test code = 9900206823) 0.004 ng/mL <=0.034 HILARIA (test code = [...] of biotin. Lab Interpretation (test code = 42081-1) [facility] (30016)2023-[facility]-29 11:35:02* Test Item Value Reference Range Interpretation Comme nts NA (test code = 1565814302) 141 mmol/L 135-145 K (test code = 9745513302) 3.3 mmol/L 3.5-5.0 L CL (test code = 8418230180) 106 mmol/L 98-108 CO2 TOTAL (test code = 1304548471) 25 mmol/L 23-31 AGAP (test code = 1788271109) 10 2-16 BUN (test code = 4540676579) 4 mg/dL 7-23 L GLUCOSE (test code = 7271073500) 91 mg/dL 70-110 CREATININE (test code = 4653652504) 0.78 mg/dL 0.60-1.25 TOTAL BILI (test code = 2885539475) 0.4 mg/dL 0.1-1.1 CALCIUM (test code = 3830572924) 8.9 mg/dL 8.6-10.6 T PROTEIN (test code = 7453154445) 8.3 g/dL 6.3-8.2 H ALBUMIN (test code = 0003279131) 4.6 g/dL 3.5-5.0 ALK PHOS (test code = 9507129269) 75 U/L 34-122 ALTv (test code = 1742-6) 47 U/L 5-50 AST(SGOT) (test code = 2696331417) 45 U/L 13-40 H eGFR (test code = 3189427719) 108.6 mL/min/1.73m2 HILARIA (test code = HILARIA) [...] imaging tests). Lab Interpretation (test code = 24639-0) Abnormal [facility]"
[2024-07-27 15:28] LABS: Hematocrit 44.4 % (39.6-49.0); Hemoglobin 14.8 g/dL (13.6-17.9); MCH 30.5 pg (27.0-35.0); MCHC 33.2 g/dL (32.0-36.0); MPV 8.1 fL (7.6-11.3); Platelets 238 thou/uL (152-406); RBC Red Blood Cell Count 4.83 M/uL (4.33-5.43); Red Cell Distribution Width 13.8 % (12.1-15.2)
[2024-07-27 15:44] LABS: Anion Gap 9.2 mEq/L (5.0-15.0); Potassium 4.2 mEq/L (3.5-5.1)
--- NOTE | 2024-07-27 16:35 | RAD REPORT ---
EXAMINATION: CT MAXILLOFACIAL WITHOUT CONTRAST CLINICAL INDICATION: Male, 44 years old. SWELLING TECHNIQUE: Axial images were obtained through the facial bones with and without intravenous contrast. Sagittal and coronal reconstructions were created from the data. One or more of the following dose reduction techniques were used: Automated exposure control, adjustment of the mA and/or kV according to patient size, and/or iterative reconstruction. Unless otherwise specified, incidental findings do not require dedicated imaging follow-up. [id number]. COMPARISON: No prior exam. FINDINGS: SOFT TISSUE: Left facial skin thickening and subcutaneous edema. BONES: Numerous dental caries present involving the bilateral mandibular and maxillary teeth. Several periapical lucencies are also noted. ORBITS: The globes are intact. No intraorbital hemorrhage or mass. SINUSES: Several of the ethmoid air cells are opacified. Trace bilateral maxillary sinus mucosal thic kening. BRAIN: No acute abnormalities in the visualized intracranial structures. IMPRESSION: Skin thickening and subcutaneous edema along the left cheek but no underlying abscess identified. Mul tiple dental caries and a few periapical lucencies present which may be the underlying etiology.
--- NOTE | 2024-07-27 16:48 | EDPHYS ---
Physician Documentation [facility] Name: Wilner Gregg Age: 44 yrs Sex: Male : 1980 Arrival Date: 07/27/2024 Time: 12:41 Bed DX2 Private MD: ED Physician Sosa Butler HPI: 07/27 16:49 This 44 yrs old Male presents to ER via Ambulatory with complaints of Facial gb1 Swelling. 16:49 44-year-old male with left-sided facial swelling. He had teeth pulled on that side a gb1 few months ago. He has a history of dental caries. He denies any fever chills or any new medications. He denies any food or drug allergies and has not taken any medications other than the ones he has been prescribed previously.. 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 - Infectious Disease History:: Denies. - Social history:: Smoking status: Patient reports the use of cigarette tobacco products. Exam: 16:49 Constitutional: This is a well developed, well nourished patient who is awake, alert, gb1 and in no acute distress. Head/Face: Left-sided facial swelling around the mandible and buccal area. No angioedema on exam. Eyes: Pupils equal round and reactive to light, extra-ocular motions intact. Mild left periorbital edema. Normal conjunctiva and sclera are non-icteric and not injected. Cornea within normal limits. Periorbital areas with no swelling, redness, or edema. Neck: Trachea midline, no thyromegaly or masses palpated, and no cervical lymphadenopathy. Supple, full range of motion without nuchal rigidity, or vertebral point tenderness. No Meningismus. Chest/axilla: Normal chest wall appearance and motion. Nontender with no deformity. No lesions are appreciated. Cardiovascular: Regular rate and rhythm with a normal S1 and S2. No gallops, murmurs, or rubs. Normal PMI, no JVD. No pulse deficits. Respiratory: Lungs have equal breath sounds bilaterally, clear to auscultation and percussion. No rales, rhonchi or wheezes noted. No increased work of breathing, no retractions or nasal flaring. Back: No spinal tenderness. No costovertebral tenderness. Full range of motion. Skin: Warm, dry with normal turgor. Normal color with no rashes, no lesions, and no evidence of cellulitis. MS/ Extremity: Pulses equal, no cyanosis. Neurovascular intact. Full, normal range of motion. Vital Signs: 13:53 BP 149 / 92; Pulse 79; Resp 17; Temp 97.9; Pulse Ox 100% ; Weight 80.74 kg; Height 5 jl7 ft. 7 in. ; Pain 0/10; 13:53 Body Mass Index 27.88 (80.74 kg, 170.18 cm) 7 13:53 Pain Scale: Adult jl7 MDM: 13:44 Medical Screening Exam initiated gb1 16:49 Data reviewed: vital signs, nurses notes, lab test result(s), CBC, electrolytes, gb1 radiologic studies, CT scan. 16:53 ED course: 44-year-old male with left-sided facial swelling consistent with facial gb1 cellulitis secondary to odontogenic etiology. I prescribed Augmentin and recommend dental follow-up as an outpatient. At this time there does not appear to be any brawny edema or any acute angioedema. I doubt any on the CT of the maxillofacial there is no diann abscess.. 12 14:31 Order name: CBC w/o diff; Complete Time: 15:46 gb1 07/27 14:31 Order name: BMP; Complete Time: 15:46 gb1 07/27 14:31 Order name: Maxillofacial W/Wo CT; Complete Time: 16:47 gb1 Administered Medications: No medications were administered Disposition Summary: 07/27/24 16:48 Discharge Ordered Notes: Location: Home gb1 Problem: chronic gb1 Symptoms: are unchanged gb1 Condition: Stable gb1 Diagnosis - Cellulitis of face gb1 - Dental root caries gb1 Followup: gb1 - With: Private Physician - When: - Reason: Recheck today's complaints Discharge Instructions: - Discharge Summary Sheet gb1 - Dental Caries, Adult gb1 - Dental Caries, Adult, [id number] gb1 Forms: - Medication Reconciliation Form gb1 - Antibiotic Education gb1 - Prescription Opioid Use gb1 - Patient Portal Instructions gb1 - Leadership Thank You Letter gb1 Prescriptions: - Augmentin 875-125 mg Oral Tablet - take 1 tablet ORAL route every 12 hours for 10 days; 20 tablet; Refills: 0, gb1 Product Selection Permitted - Ibuprofen 800 mg Oral Tablet - take 1 tablet ORAL route every 8 hours As needed take with food; 30 tablet; gb1 Refills: 0, Product Selection Permitted Signatures: Dispatcher [employer] Nasreen Alcantar RN RN jl7 Sosa Butler MD MD gb1 Corrections: (The following items were deleted from the chart) 13:55 13:54 Home Meds: None; darinel jl7 13:55 13:54 PMHx: None; darinel jl7
--- NOTE | 2024-07-27 16:48 | ER ---
Nurse's Notes [facility] Name: Wilner Gregg Age: 44 yrs Sex: Male : 1980 Arrival Date: 07/27/2024 Time: 12:41 Bed DX2 Private MD: Diagnosis: Cellulitis of face;Dental root caries Presentation: 07/27 13:53 Chief complaint: Patient states: Left sided facial swelling x 1 week, denies pain. jl7 Coronavirus screen: At this time, the client does not indicate any symptoms associated with coronavirus-19. Ebola Screen: No symptoms or risks identified at this time. Initial Sepsis Screen: Does the patient meet any 2 criteria? No. Patient's initial sepsis screen is negative. Does the patient have a suspected source of infection? No. Patient's initial sepsis screen is negative. Risk Assessment: Do you want to hurt yourself or someone else? Patient reports no desire to harm self or others. Onset of symptoms was July 21, 2024. 13:53 Method Of Arrival: Ambulatory [facility] 13:53 Acuity: MITA 4 jl7 Triage Assessment: 13:54 General: Appears in no apparent distress. uncomfortable, Behavior is calm, cooperative, jl7 appropriate for age. Pain: Denies pain. 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 - Infectious Disease History:: Denies. - Social history:: Smoking status: Patient reports the use of cigarette tobacco products. Screenin:47 Abuse screen: Denies threats or abuse. Denies injuries from another. Nutritional ss screening: No deficits noted. Tuberculosis screening: Never had TB. Assessment: 16:47 Reassessment: Patient appears in no apparent distress at this time. Patient and/or ss family updated on plan of care and expected duration. Pain level reassessed. Patient is alert, oriented x 3, equal unlabored respirations, skin warm/dry/pink. 17:36 Reassessment: Patient appears in no apparent distress at this time. Patient and/or ss family updated on plan of care and expected duration. Pain level reassessed. Vital Signs: 13:53 BP 149 / 92; Pulse 79; Resp 17; Temp 97.9; Pulse Ox 100% ; Weight 80.74 kg; Height 5 7 ft. 7 in. ; Pain 0/10; 13:53 Body Mass Index 27.88 (80.74 kg, 170.18 cm) jl7 13:53 Pain Scale: Adult [facility] ED Course: 12:45 Patient arrived in ED. ra3 12:47 Sosa Butler MD is Attending Physician. gb1 13:54 Triage completed. jl7 13:54 Arm band placed on right wrist. jl7 16:08 Maxillofacial W/Wo CT In Process Unspecified. EDMS 16:47 Shanae Rowley, RN is Primary Nurse. ss 16:47 Patient has correct armband on for positive identification. Bed in low position. ss 17:36 No provider procedures requiring assistance completed. Patient did not have IV access ss during this emergency room visit. Administered Medications: No medications were administered Medication: 16:47 VIS not applicable for this client. ss Outcome: 16:48 Discharge ordered by MD. gb1 17:37 Discharged to home ambulatory, ss 17:37 Condition: good 17:37 Discharge instructions given to patient, Instructed on discharge instructions, follow up and referral plans. medication usage, Demonstrated understanding of instructions, follow-up care, medications, Prescriptions given X 2, 17:37 Patient left the ED. ss Signatures: Dispatcher [employer] EDKY Shanae Rowley, RN RN Nasreen Keyes RN RN Sosa Galloway MD MD gb1 Alva, Ruby ra3 Corrections: (The following items were deleted from the chart) 13:55 13:54 Home Meds: None; [facility] 13:55 13:54 PMHx: None; 7
[2024-07-27 21:44] VITALS: BP 149/92; TEMP 97.9; O2SAT 100
== END 2024-07-27 17:37 | disposition home or self-care (01) ==
LOC: ER 12:41
DX: L03.211 Cellulitis of face (principal); K02.7 Dental root caries; F17.210 Nicotine dependence, cigarettes, uncomplicated
CPT/HCPCS: 80048; 36415; 85027; 70488; 99283; Q9967